=== PATIENT | female | born 1990 | race Caucasian/White ===

== ENCOUNTER → 2016-07-11 | Outpatient (CLI) | payer OTHER ==
[~2016-07-11] MED LIST: ACET50TA PO; IBUP80TA PO
== END ==
LOC: M SMT 13:34
PROVIDERS: ATTEND Advanced Practice Midwife
DX: Z34.01 Encounter for supervision of normal first pregnancy, first trimester (principal)

== ENCOUNTER → 2016-09-08 | Outpatient (CLI) | payer OTHER ==
--- NOTE | 2016-09-09 03:32 | REP ---
Clinical: Anatomical evaluation. Comparison: None . Findings: Examination demonstrates a single live intrauterine in cephalic presentation. motion is identified by technologist. Placenta is noted posterior and grade zero without evidence for placenta previa or abruption. Amniotic fluid volume is normal. Cervix measures 4.0 cm in length and appears closed. No evidence for nuchal cord. Gestational age by LMP 17 weeks 6 days with MIRIAM 02/10/2017 . Gestational age by current measurements 18 weeks 1 day with MIRIAM 02/08/2017 . FHR equals 147 beats per minute. BPD 4.2 cm 18 weeks 5 days HC 14.9 cm 18 week 0 days AC 13.0 cm 18 weeks 4 days FL 2.6 cm 18 weeks 5 day HL a 0.6 cm 18 weeks 3 days HC/AC ratio 1.14 Estimated weight 227 grams ( 57th percentile). Anatomical assessment demonstrates normal structures including cranium, cavum, cerebellum/posterior fossa, facial features, lungs, four-chamber heart/left ventricular outflow tract, diaphragm, stomach, cord insertion/three-vessel cord, kidneys/bladder, spine, and extremities. Small bilateral choroid plexus cysts measure up to 4 mm. Impression: 1. Single live intrauterine in cephalic presentation demonstrating appropriate interval growth. 2. Small choroid plexus cysts up to 4 mm. Anatomical assessment is otherwise complete and normal. Signed by Sunny Heard MD 09/09/2016 03:23 A
== END ==
LOC: M SMT 13:34
PROVIDERS: ATTEND Specialist
DX: Z34.82 Encounter for supervision of other normal pregnancy, second trimester (principal)

== ENCOUNTER → 2016-11-03 | Outpatient (CLI) | payer OTHER ==
[2016-11-03 14:00] LABS: BASO % 0.2 % (0.0-1.0); EOS % 0.7 % (0.0-3.0); LARGE UNSTAINED CELL % 0.7 % (0.0-4.0); LYMPH # 1.2 K/mm3 (1.5-6.5); LYMPH % 18.3 % (24.0-44.0); MEAN CORPUSCULAR HEMOGLOBIN 34.6 pg (27.0-33.0); MEAN CORPUSCULAR HGB CONC 33.6 g/dl (32.0-36.5); MEAN CORPUSCULAR VOLUME 102.8 fl (80.0-96.0); MONO # 0.4 K/mm3 (0.0-0.8); MONO % 6.5 % (0.0-5.0); NEUTROPHILS # 4.7 K/mm3 (1.8-7.7); NEUTROPHILS % 73.6 % (36.0-66.0); PLATELET COUNT, AUTOMATED 203 k/mm3 (150-450); RED CELL DISTRIBUTION WIDTH 12.6 % (11.5-14.5); WHITE BLOOD COUNT 6.4 K/mm3 (4.0-10.0)
== END ==
LOC: M SMT 08:30
PROVIDERS: ATTEND Advanced Practice Midwife
DX: Z34.83 Encounter for supervision of other normal pregnancy, third trimester (principal)

== ENCOUNTER → 2017-01-20 | Outpatient (REF) | payer OTHER | LOC: M LAB REF 17:03 | PROVIDERS: ATTEND Advanced Practice Midwife | DX: Z34.83 Encounter for supervision of other normal pregnancy, third trimester (principal) ==

== ENCOUNTER 2017-02-17 17:29 | Inpatient (IN) | payer OTHER ==
[~2017-02-17] VITALS: Ht 157.5 cm; Wt 85.0 kg
[2017-02-17 17:52] VITALS: BP 142/64
[2017-02-17] MEDS ORDERED: ZANTTAB PO (17:56)
[2017-02-17 18:09] VITALS: BP 112/79
[2017-02-17 18:25] LABS: MEAN CORPUSCULAR HEMOGLOBIN 31.7 pg (27.0-33.0); MEAN CORPUSCULAR HGB CONC 33.6 g/dl (32.0-36.5); MEAN CORPUSCULAR VOLUME 94.2 fl (80.0-96.0); PLATELET COUNT, AUTOMATED 146 10^3/uL (150-450); RED CELL DISTRIBUTION WIDTH 12.8 % (11.5-14.5); WHITE BLOOD COUNT 6.1 10^3/uL (4.0-10.0)
[2017-02-17 18:59] VITALS: BP 125/75
[2017-02-17] MEDS ORDERED: miSOPROStol 50 MCG 1/2 TAB (S0191) PO ONE (20:00)
[2017-02-17] MEDS ORDERED: BUTORPHANOL 2 MG/ML INJ (J0595) IV ONE (22:45)
[2017-02-17] MEDS ORDERED: PROMETHAZINE INJ 25 MG/ML VIAL (J2550) IV PRN (22:45)
--- NOTE | 2017-02-17 23:03 | HPE ---
DATE OF ADMISSION: 02/17/2017 REASON FOR ADMISSION: Induction of labor for post dates. HISTORY OF PRESENT ILLNESS: Ms. Lora is a 26-year-old 2, para 1 who presented after 41 weeks 0 days estimated gestational age by last menstrual period confirmed by first trimester ultrasound here for induction of labor for post dates. Her course has been unremarkable. She initiated care the first trimester and has been appropriate throughout. PAST MEDICAL HISTORY: None. PAST SURGICAL HISTORY: She has had a left breast biopsy. MEDICATIONS: Include vitamins. ALLERGIES: She has no known drug allergies. OBSTETRICAL HISTORY: She is 2, para 1. She has had one term vaginal delivery. She is proven to 9 pounds 7 ounces. PHYSICAL EXAMINATION: VITAL SIGNS: Stable. She is afebrile. She has a category 1 heart rate tracing. Had regular contractions tocometer. GENERAL APPEARANCE: Well appearing. No acute distress. LUNGS: Clear to auscultation bilaterally. CARDIOVASCULAR: Heart regular rate and rhythm. ABDOMEN: Gravid, nontender. Estimated weight 3700 grams. CERVICAL EXAM: She is 3 cm dilated, 50% effaced, - 3 station. LABS: Blood type is A negative. Antibody screen is negative. Rubella immune. RPR is nonreactive. Hepatitis surface antigen negative. HIV negative. Hepatitis C is nonreactive. Chlamydia and gonorrhea screen is negative. She had a normal one-hour Glucola. She is GBS negative. ASSESSMENT: 1. Ms. Lora is a 26-year-old 2, para 1 who is at 41 weeks 0 days here for induction of labor. 2. Reassuring status. PLAN: 1. Admit to labor and delivery. CBC, RPR, type and screen. 2. Will initiate her induction with 50 mcg of misoprostol.
[2017-02-18] MEDS ORDERED: OXYTOCIN DRIP 30 UNITS in APPROPRIATE DILUENT 1 EA IV SCH ×3 (01:01)
[2017-02-18] MEDS ORDERED: DOCUSATE SODIUM 100 MG CAP PO PRN (01:15)
[2017-02-18] MEDS ORDERED: RHOGAM 300 MCG (1500 IU) INJ (J2790) IM SCH (01:15)
[2017-02-18] MEDS ORDERED: METHYLERGONOVINE MALEATE 0.2 MG TAB PO PRN (01:15)
[2017-02-18] MEDS ORDERED: ACETAMINOPHEN 500 MG TAB PO PRN (01:15)
[2017-02-18] MEDS ORDERED: MEASLES,MUMPS,RUBELLA VACCINE INJ (MMR-II) (90707) SC SCH (01:15)
[2017-02-18] MEDS ORDERED: ANUSOL HC CREAM 30GM TOP PRN (01:15)
[2017-02-18] MEDS ORDERED: MOM 30ML SUSPENSION UDC PO PRN (01:15)
[2017-02-18] MEDS ORDERED: DIBUCAINE 1% OINTMENT 30GM TOP PRN (01:15)
[2017-02-18 03:08] VITALS: BP 122/69
[2017-02-18 05:43] VITALS: BP 101/54
[2017-02-18 08:28] VITALS: BP 116/60
[2017-02-18] MEDS: PRENATAL VITAMINS CHEWABLE TABLET PO SCH (09:00)
[2017-02-18 10:46] VITALS: BP 120/86
--- NOTE | 2017-02-18 14:56 | DN ---
DATE OF DELIVERY: 02/18/2017 TIME OF : 0028 hours. GENDER: Male. SCORE: 8 and 9. WEIGHT: 8 pounds 7 ounces or 3040 grams. ANESTHESIA: None. LACERATIONS: None. ESTIMATED BLOOD LOSS: 300 mL. COUNTS: 5 laparotomy sponges accounted for prior to and after delivery. DELIVERY NOTE: On 02/18/2017, at 0028 hours, Ms. Lora, a 26-year-old, 2, now para 2, had a spontaneous vaginal delivery of a liveborn male infant, score 8 and 9, weight was 3840 grams or 8 pounds 7. Head was delivered occiput anterior (OA) over an intact peritoneum, followed by delivery of right anterior shoulder, left posterior shoulder and corpus. Infant was handed to mom with a good cry. Cord was clamped times two. It was cut by the father of the baby under my direction. Cord blood was obtained. Placenta was drained and delivered grossly intact. A premixed bag of 500 mL of normal saline with 30 units of Pitocin was then bolused along with uterine massage until uterus was firm. On inspection, cervix , vagina and perineum was grossly intact and hemostatic. Mom and baby recovered in stable condition. [facility]
[2017-02-18 18:24] VITALS: BP 107/57
[2017-02-18] MEDS: IBUPROFEN 800 MG TAB PO PRN (19:49)
[2017-02-19 06:00] VITALS: BP 118/66
[2017-02-19] MEDS: PRENATAL VITAMINS CHEWABLE TABLET PO SCH (07:55)
[2017-02-19] MEDS: IBUPROFEN 800 MG TAB PO PRN (07:55)
[2017-02-19] MEDS ORDERED: COLA100C5 PO (12:24)
[2017-02-19] MEDS ORDERED: ACET50TA PO (12:24)
[2017-02-19] MEDS ORDERED: IBUP-1114 PO (12:24)
[2017-02-19] MEDS ORDERED: MILKSUS PO (12:24)
[2017-02-19] MEDS ORDERED: PREN29TA4 PO (12:24)
== END 2017-02-19 13:05 | disposition home or self-care (01) | DRG 560 ==
LOC: M LDI 17:29 → M OBS 02-18 03:05
PROVIDERS: ADMIT Obstetrics & Gynecology; ATTEND Obstetrics & Gynecology
PROC: 3E0DXGC Introduction of Other Therapeutic Substance into Mouth and Pharynx, External Approach (ICD-10-PCS; 2017-02-17)
PROC: 10E0XZZ Delivery of Products of Conception, External Approach (ICD-10-PCS; principal; 2017-02-18)
DX: O48.0 Post-term pregnancy (principal); Z37.0 Single live birth; Z3A.41 41 weeks gestation of pregnancy

== ENCOUNTER → 2018-05-14 | Outpatient (REF) | payer OTHER ==
[~2018-05-14] MED LIST changes: +COLA100C5 PO; +IBUP-1114 PO; +MAPA500T2 PO; +MILK120011 PO; +PREN29TA4 PO; +ZANTTAB PO
== END ==
LOC: M LAB REF 13:04
PROVIDERS: ATTEND Specialist
DX: Z12.4 Encounter for screening for malignant neoplasm of cervix (principal)

== ENCOUNTER → 2018-08-08 | Outpatient (REF) | payer OTHER ==
[~2018-08-08] MED LIST changes: -ACET50TA PO; +MAPA500T17 PO
== END ==
LOC: M LAB REF 18:03
PROVIDERS: ATTEND Advanced Practice Midwife
DX: R30.0 Dysuria (principal)

== ENCOUNTER → 2019-06-04 | Outpatient (REF) | payer OTHER ==
[~2019-06-04] MED LIST changes: +ZANT150T40 PO; -ZANTTAB PO
== END ==
LOC: M SFHCWAGY 17:30
PROVIDERS: ATTEND Specialist
DX: Z01.419 Encounter for gynecological examination (general) (routine) without abnormal findings (principal)

== ENCOUNTER → 2020-05-11 | Outpatient (CLI) | payer OTHER | LOC: M PLALAB 14:57 | PROVIDERS: ATTEND Obstetrics & Gynecology | DX: Z34.81 Encounter for supervision of other normal pregnancy, first trimester (principal) ==

== ENCOUNTER → 2020-07-13 | Outpatient (REF) | payer OTHER | LOC: M PLALAB 14:41 | PROVIDERS: ATTEND Obstetrics & Gynecology | DX: Z34.92 Encounter for supervision of normal pregnancy, unspecified, second trimester (principal); Z3A.22 22 weeks gestation of pregnancy ==

== ENCOUNTER → 2020-07-14 | Outpatient (CLI) | payer OTHER ==
--- NOTE | 2020-07-14 09:43 | REP ---
INDICATION: VAGINAL BLEEDING IN , 22 WEEKS GESTATION COMPARISON: None. TECHNIQUE: Transabdominal obstetrical ultrasound with color Doppler evaluation. FINDINGS: Examination demonstrates a single live intrauterine in cephalic presentation. motion is identified by technologist. Placenta is noted anterior and grade 1 without evidence for placenta previa or abruption. Amniotic fluid volume is normal. Cervix measures 3.7 cm in length and appears closed.. Gestational age by LMP 22 weeks 2 days with MIRIAM 11/15/2020. Gestational age by current measurements 21 weeks 3 days with MIRIAM 11/21/2020. FHR equals 147 beats per minute. Estimated weight 445 grams (19thpercentile). IMPRESSION: 1. Single live intrauterine in cephalic presentation demonstrating appropriate estimated weight. 2. Placenta identified anteriorly and without placenta previa. The patient was told on prior evaluation that there was evidence for placental abruption. The current examination demonstrates no definite abruption although the anterior-most portion of the placenta is incompletely visualized. If the patient remains symptomatic re-evaluation may be warranted. <Electronically signed by Sunny Heard > 07/14/20 0938
== END ==
LOC: M WHC 09:01
PROVIDERS: ATTEND Obstetrics & Gynecology
DX: O46.90 Antepartum hemorrhage, unspecified, unspecified trimester (principal); Z3A.22 22 weeks gestation of pregnancy

== ENCOUNTER → 2020-08-11 | Outpatient (REF) | payer OTHER ==
[2020-08-11 18:05] LABS: HEMATOCRIT 32.5 % (36.0-47.0); HEMOGLOBIN 10.6 g/dl (12.0-15.5); MEAN CORPUSCULAR HEMOGLOBIN 33.1 pg (27.0-33.0); MEAN CORPUSCULAR HGB CONC 32.6 g/dl (32.0-36.5); MEAN CORPUSCULAR VOLUME 101.6 fl (80.0-96.0); PLATELET COUNT, AUTOMATED 203 10^3/uL (150-450); WHITE BLOOD COUNT 8.3 10^3/uL (4.0-10.0)
== END ==
LOC: M PLALAB 13:49
PROVIDERS: ATTEND Obstetrics & Gynecology
DX: Z34.92 Encounter for supervision of normal pregnancy, unspecified, second trimester (principal); Z3A.00 Weeks of gestation of pregnancy not specified
CPT/HCPCS: 36415; 82950; 85027; 86850; 86900; 86901; J2790

== ENCOUNTER → 2020-10-21 | Outpatient (REF) | payer OTHER | LOC: M PLALAB 15:22 | PROVIDERS: ATTEND Obstetrics & Gynecology | DX: Z34.93 Encounter for supervision of normal pregnancy, unspecified, third trimester (principal); Z3A.36 36 weeks gestation of pregnancy ==

== ENCOUNTER → 2020-10-21 | Outpatient (CLI) | payer OTHER ==
--- NOTE | 2020-10-21 14:17 | REP ---
INDICATION: 36 WEEK GESTATION,MACROSOMIA,GROWTH. COMPARISON: July 24, 2020.. TECHNIQUE: Transabdominal obstetric sonography. FINDINGS: Scanning through the gravid uterus demonstrates a viable single intrauterine gestation in cephalic lie. motion is observed and heart rate is recorded at 139 beats per minute. A anterior placenta is seen, grade 2, without evidence of placenta previa. Closed cervical length could not be seen or measured due to head position.. No extrauterine abnormality is observed. Amniotic fluid is subjectively normal. CLARA is normal at 10.4 cm.. . Biometry chart: BPD 8.8 cm, 35 weeks 3 days Head circumference 31.2 cm, 35 weeks 0 days Abdominal circumference 28.8 cm, 32 weeks 5 days Femur length 6.8 cm, 35 weeks 0 days Humeral length 5.8 cm, 33 weeks 4 days HC AC ratio normal 1.09 Cephalic index normal 0.80 Estimated weight 2300 g, 5 lb 1 oz, 5th percentile for 36 weeks 3 days SD ratio in the umbilical cord artery by Doppler normal 2.24 IMPRESSION: Viable single intrauterine gestation at 364 weeks 2 days by today's composite sonographic criteria. MIRIAM by today's sonography November 30, 2020. No complication identified. Expected gestational age estimate based on 1st sonography 36 weeks 3 days MIRIAM by 1st sonography November 15, 2020. Fifth percentile weight. <Electronically signed by Angel Lora > 10/21/20 [id number]
== END ==
LOC: M WHC 12:03
PROVIDERS: ATTEND Advanced Practice Midwife
DX: O36.63X1 Maternal care for excessive fetal growth, third trimester, fetus 1 (principal); Z3A.34 34 weeks gestation of pregnancy

== ENCOUNTER → 2020-10-22 | Outpatient (REF) | payer OTHER | LOC: M SFHCWAGY 17:01 | PROVIDERS: ATTEND Obstetrics & Gynecology | DX: Z34.83 Encounter for supervision of other normal pregnancy, third trimester (principal); Z3A.36 36 weeks gestation of pregnancy ==

== ENCOUNTER → 2020-10-29 | Outpatient (CLI) | payer OTHER ==
--- NOTE | 2020-10-29 11:25 | REP ---
INDICATION: IUGR,BPP. COMPARISON: . Comparison study October 21, 2020.. TECHNIQUE: Transabdominal obstetric sonography. Limited study. FINDINGS: Scanning through the gravid uterus demonstrates a viable single intrauterine gestation in cephalic lie. motion is observed and heart rate is recorded at 139 beats per minute. A anterior placenta is seen, grade 1, without evidence of placenta previa. Closed cervical length is measured at 4.1 cm transabdominally. No extrauterine abnormality is observed. Amniotic fluid is subjectively normal CLRAA is normal at 9.2 cm.. Biophysical profile score is 8 out of a possible 8. SD ratio in the umbilical cord artery by Doppler is normal at 2.29.. IMPRESSION: Viable single intrauterine gestation at 37 weeks 4 days by previous composite sonographic criteria. MIRIAM by previous sonography 15 November 2020. No complication identified. Limited exam. <Electronically signed by Angel Lora > 10/29/20 1122
== END ==
LOC: M WHC 10:41
PROVIDERS: ATTEND Obstetrics & Gynecology
DX: Z34.82 Encounter for supervision of other normal pregnancy, second trimester (principal)

== ENCOUNTER → 2020-11-05 | Outpatient (CLI) | payer OTHER ==
--- NOTE | 2020-11-05 15:55 | REP ---
INDICATION: BPP/GROWTH. COMPARISON: Obstetrical ultrasound, 10/29/2020. TECHNIQUE: Limited transabdominal obstetrical ultrasound, for biophysical profile score. FINDINGS: Single living intrauterine of 38 weeks 4 days, mean gestational age. presentation is cephalic. The placenta is anterior grade 2. There is no evidence of placenta previa. Biophysical profile score: AFV, 2 (CLARA, 8.7 cm) Breathing,2 tone, 2 movement, 2 Umbilical artery Doppler: PSV/EDV, 47/22 cm/S S/D, 2.08 RI, 0.52 IMPRESSION: 1. Biophysical profile score 8/8. 2. Living IUP, 38 weeks 4 days. <Electronically signed by Diomedes Ward > 11/05/20 [id number]
== END ==
LOC: M WHC 13:28
PROVIDERS: ATTEND Advanced Practice Midwife
DX: O36.5930 Maternal care for other known or suspected poor fetal growth, third trimester, not applicable or unspecified (principal); Z3A.38 38 weeks gestation of pregnancy

== ENCOUNTER 2020-11-09 07:34 | Inpatient (IN) | payer OTHER ==
[~2020-11-09] VITALS: Ht 157.5 cm; Wt 97.2 kg
[2020-11-09] VITALS (26 sets, daily range): BP systolic 107–166; BP diastolic 58–89
[2020-11-09] MEDS ORDERED: OMEP10CASR PO (08:01)
[2020-11-09] MEDS ORDERED: HOME MED LIST COMPLETE! XX SCH (08:05)
[2020-11-09] MEDS ORDERED: OXYTOCIN DRIP 30 UNITS in IV 1 EA IV PRN (08:25)
[2020-11-09] MEDS ORDERED: TRANEXAMIC ACID INJection 1,000 MG in NS 100 ML IV PRN (08:25)
[2020-11-09] MEDS ORDERED: CARBOPROST TROMETHAMINE 250 MCG/ML AMP IM PRN (08:25)
[2020-11-09] MEDS ORDERED: LIDOCAINE 1% MDV 20ML VIAL INFIL PRN (08:25)
[2020-11-09] MEDS ORDERED: METHYLERGONOVINE MALEATE 0.2 MG/ML VIAL (J2210) IM PRN (08:25)
[2020-11-09] MEDS ORDERED: LACTATED RINGER'S 1000 ML IV STA (08:25)
[2020-11-09] MEDS ORDERED: OMEP40CA4 PO (08:35)
[2020-11-09] MEDS ORDERED: miSOPROStol 50MCG 1/2 TABLET PO SCH (09:00)
[2020-11-09 09:26] LABS: HEMATOCRIT 28.3 % (36.0-47.0); MEAN CORPUSCULAR HEMOGLOBIN 29.4 pg (27.0-33.0); MEAN CORPUSCULAR HGB CONC 31.8 g/dl (32.0-36.5); MEAN CORPUSCULAR VOLUME 92.5 fl (80.0-96.0); PLATELET COUNT, AUTOMATED 191 10^3/uL (150-450); RED BLOOD COUNT 3.06 10^6/uL (4.00-5.40); WHITE BLOOD COUNT 9.4 10^3/uL (4.0-10.0)
--- NOTE | 2020-11-09 09:39 | HPEPDOC ---
Obstetrical History & Physical General Date of Admission Nov 09, 2020 at 07:34 Primary Care Physician: LISA ZAVALA CNM History of Present Illness Lucinda is a 30-year-old female who is a who is 39.1 weeks gestation with an MIRIAM of 11/15/20 based off of her LMP. She initiated care in her first trimest er of . Her has been complicated by a history of migraines, hemorrhage, shoulder dystocia and this has been complicated by intrauterine growth restriction with growth of 5%. She presents for an induction of labor for IUGR. Reports occasional contractions and active movement. She denies leaking of fluid and vaginal bleeding. Chief Complaint: Induction of labor, Other (intrauterine growth restriction) Information Provided By: Patient Age: 30 : 3 Term: 2 Pre-term: 0 Abortions: 0 Livin Care Care: Good Care Dating Final EDC: Nov 15, 2020 Final EDC by: LMP EGA at Admission: 39.1 Antepartum Course Diagnos(e)s IUGR Hx of macrosomia and shoulder dystocia Height (inches): 62 Admission Weight (lbs.): 213 Past Medical History Past Obstetrical History #1: Past Obstetrical History: Primgravida Date of Delivery: Apr 01, 2013 Gestation: 41.3 Type of Delivery: Spontaneous Vaginal Del. Sex of Infant: Male (9 lbs 7 oz) Complications: Yes ( hemorrhage and shoulder dystocia) Past Obstetrical History #2: Past Obstetrical History: Multigravida Date of Delivery: Feb 18, 2017 Gestation: 41 Type of Delivery: Spontaneous Vaginal Del. Sex of Infant: Male (8 lbs 7 oz) Complications: No SEAM HAMMERER History: Abnormal Pap, Human papillomavirus(HPV) (with cryotherapy of cervix) Past Medical History Medical History GERD Surgical History: Other (hand surgery (cyst and carpal tunnel) and removal of cyst from breast) Family History Significant Family History: Hypertension, Other (cleft lip, neuroblastoma, bipolar, depression) Social History Marital Status: Single Family situation: Spouse/partner home Psychosocial History: No pertinent psych hx * Smoker: non-smoker Alcohol: Denies Drugs: denies Abuse Violence Screening Have you been hit/kicked/slapp: No Have you been sexually assault: No Imunizations Tdap status: current Allergies Coded Allergies: No Known Allergies (Unverified , 03/31/13) Medications Scheduled Omeprazole (Omeprazole) 40 Mg Capsule.dr, 40 MG PO DAILY Physical Examination Physical Examination GENERAL: Alert and oriented times three. ABDOMEN: Gravid and non-tender to touch. FETUS: Is vertex (VTX) by sterile vaginal examination (SVE), fetus is vertex (VTX) by Juan. LUNGS: Clear to auscultation (CTA). EXTREMITIES: Generalized edema. No clonus. Deep tendon reflexes (DTRs) + 2. Vital Signs/I&O Vital Signs Date Time Temp Pulse Resp B/P (MAP) Pulse Ox O2 Delivery O2 Flow Rate FiO2 11/09/20 08:30 100 18 149/84 (105) 11/09/20 07:59 97.9 Laboratory Data 24H LABS Laboratory Tests 2 11/09/20 07:57: Serology Scanned Report Hepatitis B Testing 11/09/20 09:10: Nucleated Red Blood Cells % (auto) 0.0 CBC/BMP Laboratory Tests 11/09/20 09:10 Urine Culture: Contaminated Pertinent Laboratoy Data Blood Type: A- RBC Antibody Screen: Negative HIV: Negative Hepatitis B: Negative Hepatitis C: Negative Rapid Plasma Reagin: Nonreactive Rubella: Immune Chlamydia/Gonorrhea: Negative Group B Streptococcus: Negative Glucose Tolerance Test: 72 Diag/Inter Therapy NIPT low risk normal female Anatomy Ultrasound Ultrasound Date: Oct 21, 2020 Placenta Location: Anterior Normal Anatomy: Yes Placenta Previa: No Estimated Weight (grams): 2300 Vaginal Examination Dilation: 1cm Effacement: 50% Station: -2 Cervical Consistency: Soft Cervical Position: Anterior Presentation: Cephalic presentation Assessment Heart Rate (FHR): 130 Variability: Moderate Accelerations: Positive Decelerations: None Tocometer Contractions: Yes Frequency: irregular Multi-drug resistant Organism: No history of MDRO Assessment/Plan Assessment IUP at 39.1 weeks gestation GBS negative Category I FHR tracing intrauterine growth restriction Plan Admit to L&D. Dr. Allison aware of patient being in the department. OOB ad khadijah. Diet: regular now then clears when IV Pitocin is started. Group B Streptococcus (GBS) negative. Labs and intravenous (IV) per unit protocol. Counseled on Cytotec and Pitocin for induction of labor. Anesthesia consult per patient's request. Lactated Ringers (LR): Bolus 800 mL prior to epidural, then at 125 mL/hr. Anticipate cervical ripening. C-S as appropriate. LISA ZAVALA CNM Nov 09, 2020 09:39
[2020-11-09 10:00] LABS: ALT/SGPT 13 U/L (12-78); BILIRUBIN,TOTAL 0.2 MG/DL (0.2-1.0); CREATININE FOR GFR 0.42 MG/DL (0.55-1.30); GLOMERULAR FILTRATION RATE > 60.0 (>60); LDH LACTATE DEHYDROGENASE 176 U/L (84-246)
[2020-11-09 11:02] LABS: CREATININE,RANDOM URINE 68.3 MG/DL
[2020-11-09] MEDS ORDERED: OXYTOCIN DRIP 30 UNITS in IV 1 EA IV SCH (14:45)
[2020-11-09] MEDS: LR 1,000 ML IV SCH ×2 (15:10→23:15)
--- NOTE | 2020-11-09 20:53 | IPNPDOC ---
Obstetrical Progress Note Date of Service Nov 09, 2020 Subjective Reports contractions are more intense. Objective Vital Signs Date Time Temp Pulse Resp B/P (MAP) Pulse Ox O2 Delivery O2 Flow Rate FiO2 11/09/20 19:15 98.2 16 11/09/20 18:59 73 118/58 (78) Assessment Heart Rate (FHR): 140 Variability: Moderate Accelerations: Positive Decelerations: None Heart Rate Tracing: Category I Tocometer Contractions: Yes Frequency: regular Sterile Vaginal Examination Dilation: 3 cm (3-4 cm) Effacement (%): other (75%) Station: -2 Cervical Consistency: Soft Cervical Position: Anterior Postion/Presentation: Cephalic presentation Assessment and Plan Age: 30 : 3 Term: 2 Pre-term: 0 Abortions: 0 Livin EGA at Admission: 39.1 Status: Reassuring Group B Streptococcus: Negative Anticipate: Vaginal Delivery Additional Comments IV Pitocin at 14 mu/min. AROM to a scant amount of clear fluid. IV pain medication ordered per patient's request. GHTN diagnosed with multiple elevated blood pressures throughout the day. Labile BPs. LISA ZAVALA CNM Nov 09, 2020 20:53
[2020-11-09] MEDS ORDERED: BUTORPHANOL 2 MG/ML INJ (J0595) IV ONE (21:00)
[2020-11-09] MEDS ORDERED: PROMETHAZINE INJ 25 MG/ML VIAL (J2550) IV ONE (21:00)
[2020-11-10] VITALS (12 sets, daily range): BP systolic 110–147; BP diastolic 55–79
[2020-11-10] MEDS ORDERED: ACETAMINOPHEN TAB 650MG DOSE (2X325MG) PO PRN (01:10)
[2020-11-10] MEDS ORDERED: MEASLES,MUMPS,RUBELLA VACCINE INJ (MMR-II) (90707) SC SCH (01:10)
[2020-11-10] MEDS ORDERED: IBUPROFEN 600MG TAB PO PRN (01:10)
[2020-11-10] MEDS ORDERED: ACETAMINOPHEN 500 MG TAB PO PRN (01:10)
[2020-11-10] MEDS ORDERED: METHYLERGONOVINE MALEATE 0.2 MG TAB PO PRN (01:10)
[2020-11-10] MEDS ORDERED: DOCUSATE SODIUM 100MG CAPSULE PO PRN (01:10)
[2020-11-10] MEDS ORDERED: DIBUCAINE 1% OINTMENT 30GM TOP PRN (01:10)
[2020-11-10] MEDS ORDERED: RHOGAM 300 MCG (1500 IU) INJ (J2790) IM SCH (01:10)
[2020-11-10] MEDS ORDERED: ANUSOL HC CREAM 30GM TOP PRN (01:10)
--- NOTE | 2020-11-10 01:27 | DNPDOC ---
[facility] Delivery Note Delivery Note DATE OF DELIVERY: 11/10/20 at 0051 PREDELIVERY DIAGNOSIS: 39-1/7 weeks' gestation and induction of labor. POST DELIVERY DIAGNOSIS: Delivered. PROCEDURE: Spontaneous vaginal delivery. FREIGHT CLERK: Lisa Farrell CNM, JENNIFFER ANESTHESIA: none. ESTIMATED BLOOD LOSS: 250 mL. FINDINGS: 6 pounds 1 ounce; 2760 grams, female , Score 9/9, nuchal cord times x1 tight, induced for IUGR. DELIVERY SUMMARY: Lucinda is a 30-year-old female who is now a who presented for an IOL due to IUGR with growth at 5%. She also has a history of macrosomia with shoulder dystocia. She received 1 dose of Cytotec and IV Pitocin for IOL. Lucinda requested IV pain medication to manage labor discomfort. She progressed to fully dilated at 0044 and pushed to a living female in the YENNI position with restitution to LOT. A tight nuchal cord was noted and baby was delivered via Somersault. The baby was placed skin to skin, active and crying with stimulation. The cord was clamped x2 after 2+ minutes and cut by the FOB. A 3-vessel cord was noted. The placenta delivered intact at 0057. Uterine hemostasis was achieved via rapid infusion of IV Pitocin and fundal massage. The vagina, cervix, and perineum was inspected and found to have periurethral abrasions. Mom plans to pump and formula feed. They are naming her Celia. Both mom and baby are in stable condition. All counts of instruments and sponges are correct. LISA FARRELL CNM Nov 10, 2020 01:27
[2020-11-10] MEDS: PRENATAL VITAMINS CHEWABLE TABLET PO SCH (09:08)
[2020-11-10] MEDS: OMEPRAZOLE 20 MG CAP PO SCH (09:08)
[2020-11-10] MEDS: IBUPROFEN 800 MG TAB PO PRN (09:17)
[2020-11-11 06:00] VITALS: BP 122/67
[2020-11-11] MEDS: PRENATAL VITAMINS CHEWABLE TABLET PO SCH (08:35)
[2020-11-11] MEDS: IBUPROFEN 800 MG TAB PO PRN (08:35)
[2020-11-11] MEDS: OMEPRAZOLE 20 MG CAP PO SCH (08:35)
== END 2020-11-11 13:07 | disposition home or self-care (01) | DRG 560 ==
LOC: M LDI 07:34 → M OBS 11-10 03:13
PROVIDERS: ADMIT Advanced Practice Midwife; ATTEND Advanced Practice Midwife
PROC: 3E033VJ Introduction of Other Hormone into Peripheral Vein, Percutaneous Approach (ICD-10-PCS; 2020-11-09)
PROC: 3E0DXGC Introduction of Other Therapeutic Substance into Mouth and Pharynx, External Approach (ICD-10-PCS; 2020-11-09)
PROC: 10E0XZZ Delivery of Products of Conception, External Approach (ICD-10-PCS; principal; 2020-11-10)
DX: O69.1XX0 Labor and delivery complicated by cord around neck, with compression, not applicable or unspecified (principal); O36.5930 Maternal care for other known or suspected poor fetal growth, third trimester, not applicable or unspecified; Z37.0 Single live birth; Z3A.39 39 weeks gestation of pregnancy

== ENCOUNTER → 2021-01-11 | Outpatient (CLI) | payer OTHER ==
[~2021-01-11] MED LIST changes: +OMEP10CASR PO; +OMEP40CA4 PO
== END ==
LOC: M LABSMTC 11:52
PROVIDERS: ATTEND Anesthesiology
DX: Z01.812 Encounter for preprocedural laboratory examination (principal); Z20.822 Contact with and (suspected) exposure to COVID-19

== ENCOUNTER 2021-01-15 06:15 | Day surgery (SDC) | payer OTHER ==
[~2021-01-15] VITALS: Ht 154.9 cm; Wt 93.9 kg
[~2021-01-15 06:15] MED LIST changes: +LIDOCAINE 1% MDV 20ML VIAL SQ PRN
--- OUTSIDE RECORDS SUMMARY | 2021-01-15 06:19 | CCD ---
Author Author [facility] Organization [facility] Address Unknown Phone Unavailable Care Team Providers Care Red Mud Thickener Operator Name Role Phone Anthony Weir Unavailable PROBLEMS Type Condition ICD9-CM Code [id number] Code Onset Dates Condition S tatus W/U Status Risk SNOMED Code Notes Problem Supervision of other normal Z34.80 Ac tive confirm 558466083 Problem Obesity complicating in third trimester O99.213 Active confirmed ALLERGIES No Known Allergies ENCOUNTERS from 1989 to 2021-01-10 Encounter Location Date Provider Diagnosis [facility] [address] [place] [address] [place] [address] Jan, Anthony Weir Sterilization consul t Z30.09 IMMUNIZATIONS Vaccine Route Administration Date Status TDAP 0.5mL Boostrix IM Intramuscular September 09, 2020 Administere d RHo D Immune Globulin 300mcg/1.5mL RhoGAM IM Intramuscular August 022020 Administered SOCIAL HISTORY Sex Assigned At : Social History Observation Description Sex Assigned At Unknown Language: Question Answer Notes Languages spoken: Greek Domestic Violence: Question Answer Notes Status: Single No history of abuse Alcohol Screening: Question Answer Notes Did you have a drink containing alcohol in the past year? No Points 0 Interpretation Negative REASON FOR REFERRAL No Information VITAL SIGNS Weight 205 lbs Jan, Height 62 in Jan, BMI 37.49 kg/m2 Jan, Blood pressure systolic 124 mm Hg Jan, Blood pressure diastolic 74 mm Hg Jan, MEDICATIONS No Known Medications PROCEDURES No Information RESULTS No Results REASON FOR VISIT PRE OP SURG 01/15/21 MEDICAL (GENERAL) HISTORY Type Description Date Medical History Abnormal pap Medical History Esophageal reflux Surgical History Hand surgery- cyst and carpal tunnel Surgical History Breast - cyst removed Surgical History Cryo surgery to cervix Hospitalization History childbirth Goals Section No Information Health Concerns No Information MEDICAL EQUIPMENT No Information MENTAL STATUS No Information FUNCTIONAL STATUS No Information ASSESSMENTS Encounter Date Diagnosis Assessment Notes Treatment Notes Treatm ent Clinical Notes Jan, Sterilization consult (ICD-10 - Z30.09) PLAN OF TREATMENT Next Appt Details Provider Name:Anthony Weir, 2021-01-15 08:45:00 AM, [address] [place] [address], , [place], [address], Provider Name:Anthony Weir, 2021-01-29 11:45:00 AM, [address] [place] [address] , [place], [address], Provider Name:Osiris Farrell, 2021-03-17 09:20:00 AM, [address] [place] [address], , [place], [address], Insurance Providers Payer Name Payer Address Payer Phone Insured Name Patient Relati onship to Insured Coverage Start Date Coverage End Date [facility] [employer] [address] [facility] [phone] ANGELICA CARR self
--- OUTSIDE RECORDS SUMMARY | 2021-01-15 06:19 | CCD ---
Author Author [facility] Organization [facility] Address Unknown Phone Unavailable Care Team Providers Care Residential Direct Support Professional Name Role Phone Anthony Weir Unavailable PROBLEMS Type Condition ICD9-CM Code [id number] Code Onset Dates Condition S tatus W/U Status Risk SNOMED Code Notes Problem Supervision of other normal Z34.80 Ac tive confirm [id number] Problem Obesity complicating in third trimester O99.213 Active confirmed ALLERGIES No Known Allergies ENCOUNTERS from 1989 to 2020-12-25 Encounter Location Date Provider Diagnosis [facility] [address] [place] [address] [place] [address] Dec, Anthony Weir IMMUNIZATIONS Vaccine Route Administration Date Status TDAP 0.5mL Boostrix IM Intramuscular September 09, 2020 Administere d RHo D Immune Globulin 300mcg/1.5mL RhoGAM IM Intramuscular August 022020 Administered SOCIAL HISTORY Sex Assigned At : Social History Observation Description Sex Assigned At Unknown Language: Question Answer Notes Languages spoken: Djiboutian Domestic Violence: Question Answer Notes Status: Single No history of abuse Alcohol Screening: Question Answer Notes Did you have a drink containing alcohol in the past year? No Points 0 Interpretation Negative REASON FOR REFERRAL No Information VITAL SIGNS No information MEDICATIONS Medication SIG (Take, Route, Frequency, Duration) Notes Start Da te End Date Status Ferrous Sulfate 324 (65 Fe) MG 1 tablet Orally twice day for 30 day(s) August, Not-Taking Clobetasol Prop Emollient Base 0.05 % 1 application-th in layer to hips Externally Twice a day for 7 day(s) Jun, Not-Taking Fioricet 50-300-40 MG 1 capsule as needed Orally every 4 hrs 08 May, 2020 Not-Taking Septra DS 800-160 MG 1 tablet Orally Twice a day for 10 day(s) Jan, Not-Taking Omeprazole 40 MG 1 capsule 30 minutes before morning meal Orally Once a day for 30 day(s) August, Not-Taking Gummies/DHA & FA 0.4-32.5 MG as directed Orally Not-Taking Ondansetron 4 MG 1 tablet on the tongue and a llow to dissolve Orally every 8hrs as needed for 30 day(s) Not-Taki ng Sherine 0.35 MG 1 tablet Orally Once a day for 90 days 2019 Not-Taking PROCEDURES No Information RESULTS No Results REASON FOR VISIT AUTH MEDICAL (GENERAL) HISTORY Type Description Date Medical History Abnormal pap Medical History Esophageal reflux Surgical History Hand surgery- cyst and carpal tunnel Surgical History Breast - cyst removed Surgical History Cryo surgery to cervix Hospitalization History childbirth Goals Section No Information Health Concerns No Information MEDICAL EQUIPMENT No Information MENTAL STATUS No Information FUNCTIONAL STATUS No Information ASSESSMENTS No Information PLAN OF TREATMENT Next Appt Details Provider Name:Anthony Weir, 2021-01-01 12:45:00 AM, [address] [place] [address], [place], [phone], Provider Name:Anthony Weir, 2021-01-15 08:45:00 AM, [address] [place] [address], [phone], Provider Name:Anthony Weir 2021-01-29 11:45:00 AM, [address] [place] [address], [phone], Provider Name:Osiris Farrell 2021-03-17 09:20:00 AM, [address] [place] [address], [phone], Insurance Providers Payer Name Payer Address Payer Phone Insured Name Patient Relati onship to Insured Coverage Start Date Coverage End Date [facility] [employer] [facility] [address] [facility] [phone] ANGELICA CARR self
--- OUTSIDE RECORDS SUMMARY | 2021-01-15 06:20 | CCD ---
Author Author [facility] Organization [facility] Address Unknown Phone Unavailable Care Team Providers Care Neon Pumper Name Role Phone Serenity Nunez Unavailable PROBLEMS Type Condition ICD9-CM Code [id number] Code Onset Dates Condition S tatus W/U Status Risk SNOMED Code Notes Problem Supervision of other normal Z34.80 Ac tive confirm [id number] Problem Obesity complicating in third trimester O99.213 Active confirmed ALLERGIES No Known Allergies ENCOUNTERS from 1989 to 2020-10-23 Encounter Location Date Provider Diagnosis [facility] [address] [place] [address] [place] [address] Oct, Serenity Nunez Intrauterine growth restriction (IUGR) affecting care of mother, third trimester, single gestation O36.5930 and 36 weeks gestation of Z3A.36 IMMUNIZATIONS Vaccine Route Administration Date Status TDAP 0.5mL Boostrix IM Intramuscular September 09, 2020 Administere d RHo D Immune Globulin 300mcg/1.5mL RhoGAM IM Intramuscular August 022020 Administered SOCIAL HISTORY Sex Assigned At : Social History Observation Description Sex Assigned At Unknown Language: Question Answer Notes Languages spoken: Argentine Domestic Violence: Question Answer Notes Status: Single No history of abuse Alcohol Screening: Question Answer Notes Did you have a drink containing alcohol in the past year? No Points 0 Interpretation Negative REASON FOR REFERRAL No Information VITAL SIGNS Weight 2166.6 lbs Oct, Height 62 in Oct, BMI 37 kg/m2 Oct, Blood pressure systolic 110 mm Hg Oct, Blood pressure diastolic 68 mm Hg Oct, MEDICATIONS Medication SIG (Take, Route, Frequency, Duration) Notes Start Da te End Date Status Clobetasol Prop Emollient Base 0.05 % 1 application- in layer to hips Externally Twice a day for 7 day(s) Jun, Not-Taking Omeprazole 40 MG 1 capsule 30 minutes before morning meal Orally Once a day for 30 day(s) August, Active Ferrous Sulfate 324 (65 Fe) MG 1 tablet Orally twice day for 30 day(s) August, Active Septra DS 800-160 MG 1 tablet Orally Twice a day for 10 day(s) Jan, Not-Taking Sherine 0.35 MG 1 tablet Orally Once a day for 90 days 2019 Not-Taking Fioricet 50-300-40 MG 1 capsule as needed Orally every 4 hrs May, Not-Taking Gummies/DHA & FA 0.4-32.5 MG as directed Orally Active Ondansetron 4 MG 1 tablet on the tongue and a llow to dissolve Orally every 8hrs as needed for 30 day(s) Not-Taki ng PROCEDURES No Information RESULTS No Results REASON FOR VISIT 2WK PN MEDICAL (GENERAL) HISTORY Type Description Date Medical [...] Notes Treatment Notes Treatm ent Clinical Notes Oct, Intrauterine growth restrict ion (IUGR) affecting care of mother, third trimester, single gestation (ICD-10 - O36.5930) Oct, 36 weeks gestation of (ICD-10 - Z3A.36 ) PLAN OF TREATMENT Treatment Notes Test Name Order Date GROUP B STREP CULTURE 2020-10-21 [facility] BPP W/O NON STRESS TEST 2020-10-21 Next Appt Details 1 Week Reason:PN Provider Name:Sheila Rivera, 2020-10-29 01:40:00 PM, [address] [facility], , [place], [address], Follow Up:1 WeekPN Insurance Providers Payer Name Payer Address Payer Phone Insured Name Patient Relati onship to Insured Coverage Start Date Coverage End Date [facility] COMMUNITY PLAN [facility] [address] [facility] [phone] ANGELICA CARR self
--- OUTSIDE RECORDS SUMMARY | 2021-01-15 06:20 | CCD ---
Author Author [facility] Organization [facility] Address Unknown Phone Unavailable Care Team Providers Care Sales Department Clerk Name Role Phone Debra Allison Unavailable PROBLEMS Type Condition ICD9-CM Code [id number] Code Onset Dates Condition S tatus W/U Status Risk SNOMED Code Notes Problem Supervision of other normal Z34.80 Ac tive confirm [id number] Problem Obesity complicating in third trimester O99.213 Active confirmed ALLERGIES No Known Allergies ENCOUNTERS from 1989 to 2020-11-23 Encounter Location Date Provider Diagnosis [facility] [facility] [phone] [place] [address] Nov, Debra Allison IMMUNIZATIONS Vaccine Route Administration Date Status TDAP 0.5mL Boostrix IM Intramuscular September 09, 2020 Administere d RHo D Immune Globulin 300mcg/1.5mL RhoGAM IM Intramuscular August 022020 Administered SOCIAL HISTORY Sex Assigned At : Social History Observation Description Sex Assigned At Unknown Language: Question Answer Notes Languages spoken: [place]ym[place] Domestic Violence: Question Answer Notes Status: Single No history of abuse Alcohol Screening: Question Answer Notes Did you have a drink containing alcohol in the past year? No Points 0 Interpretation Negative REASON FOR REFERRAL No Information VITAL SIGNS No information MEDICATIONS Medication SIG (Take, Route, Frequency, Duration) Notes Start Da te End Date Status Septra DS 800-160 MG 1 tablet Orally Twice a day for 10 day(s) Jan, Not-Taking Clobetasol Prop Emollient Base 0.05 % 1 application-th in layer to hips Externally Twice a day for 7 day(s) Jun, Not-Taking Fioricet 50-300-40 MG 1 capsule as needed Orally every 4 hrs May, Not-Taking Ondansetron 4 MG 1 tablet on the tongue and a llow to dissolve Orally every 8hrs as needed for 30 day(s) Not-Taki ng Gummies/DHA & FA 0.4-32.5 MG as directed Orally Active Sherine 0.35 MG 1 tablet Orally Once a day for 90 days 2019 Not-Taking Ferrous Sulfate 324 (65 Fe) MG 1 tablet Orally twice day for 30 day(s) August, Active Omeprazole 40 MG 1 capsule 30 minutes before morning meal Orally Once a day for 30 day(s) August, Active PROCEDURES No Information RESULTS No Results REASON FOR VISIT BTL MEDICAL (GENERAL) HISTORY Type Description Date Medical [...] PLAN OF TREATMENT Next Appt Details Provider Name:Osiris Farrell, 2020-12-23 01:40:00 PM, [address] [facility], , [place], [address], Insurance Providers Payer Name Payer Address Payer Phone Insured Name Patient Relati onship to Insured Coverage Start Date Coverage End Date [facility] COMM[facility] PLAN [facility] [address] [facility] [phone] ANGELICA CRAR self
--- OUTSIDE RECORDS SUMMARY | 2021-01-15 06:20 | CCD ---
Author Author [facility] Organization [facility] Address Unknown Phone Unavailable Care Team Providers Care Desk Manager Name Role Phone Anthony Weir Unavailable PROBLEMS Type Condition ICD9-CM Code [id number] Code Onset Dates Condition S tatus W/U Status Risk SNOMED Code Notes Problem Supervision of other normal Z34.80 Ac tive confirm [id number] Problem Obesity complicating in third trimester O99.213 Active confirmed ALLERGIES No Known Allergies ENCOUNTERS from 1989 to 2020-12-15 Encounter Location Date Provider Diagnosis [facility] [address] [place] [address] [place] [address] Dec, Anthony Weir IMMUNIZATIONS Vaccine Route Administration Date Status TDAP 0.5mL Boostrix IM Intramuscular September 09, 2020 Administere d RHo D Immune Globulin 300mcg/1.5mL RhoGAM IM Intramuscular August 022020 Administered SOCIAL HISTORY Sex Assigned At : Social History Observation Description Sex Assigned At Unknown Language: Question Answer Notes Languages spoken: Croatian Domestic Violence: Question Answer Notes Status: Single [...] Information RESULTS No Results REASON FOR VISIT 01/15/21 SURG AUTH MEDICAL (GENERAL) HISTORY Type Description Date [...] Details Provider Name:Osiris Farrell, 2020-12-23 01:40:00 PM, [address] [place] [address], [address] [place] [address], Provider Name:Anthony Weir, 2021-01-01 12:45:00 AM, [address] [place] [address], [phone], Provider Name:Anthony Weir 2021-01-15 08:45:00 AM, [address] [place] [address], [phone], Provider Name:Anthony Weir 2021-01-29 11:45:00 AM, [address] [place] [address], [phone], Insurance Providers Payer Name Payer Address Payer Phone Insured Name Patient Relati onship to Insured Coverage Start Date Coverage End Date [facility] COMMUN[facility] PLAN [facility] [address] [facility] [phone] ANGELICA CARR self
--- OUTSIDE RECORDS SUMMARY | 2021-01-15 06:20 | CCD ---
Author Author [facility] Organization [facility] Address Unknown Phone Unavailable Care Team Providers Care Equal Opportunity Specialist Name Role Phone LUCAS, M OSIRIS CNM Unavailable Unavailable LUCAS, M OSIRIS CNM Unavailable Unavailable LUCAS, M OSIRIS CNM Unavailable Unavailable LUCAS, M OSIRIS CNM Unavailable Unavailable LUCAS, M OSIRIS CNM Unavailable Unavailable LUCAS, M OSIRIS CNM Unavailable Unavailable LUCAS, M OSIRIS CNM Unavailable Unavailable LUCAS, M OSIRIS CNM Unavailable Unavailable LUCAS, M OSIRIS CNM Unavailable Unavailable LUCAS, M OSIRIS CNM Unavailable Unavailable LUCAS, M OSIRIS CNM Unavailable Unavailable LUCAS, M OSIRIS CNM Unavailable Unavailable LUCAS, M OSIRIS CNM Unavailable Unavailable LUCAS, M OSIRIS CNM Unavailable Unavailable LUCAS, M OSIRIS CNM Unavailable Unavailable LUCAS, M OSIRIS CNM Unavailable Unavailable LUCAS, M OSIRIS CNM Unavailable Unavailable LUCAS, M OSIRIS CNM Unavailable Unavailable LUCAS, M OSIRIS CNM Unavailable Unavailable LUCAS, M OSIRIS CNM Unavailable Unavailable Sreedhar Grimaldo Unavailable Unavailable Sreedhar Grimaldo PA Unavailable Unavailable Sreedhar Grimaldo PA Unavailable Unavailable DillanSreedhar foley PA Unavailable Unavailable BassfieldSreedhar foley PA Unavailable Unavailable Sreedhar Grimaldo Unavailable Unavailable Sreedhar Grimaldo Unavailable Unavailable Dillan, F At PA Unavailable Unavailable Dillan, F Ta PA Unavailable Unavailable Dillan, F Ta PA Unavailable Unavailable Hadian, Juliano Unavailable Unavailable Hadian, Juliano Unavailable Unavailable Hadian, Juliano Unavailable Unavailable Hadian, Juliano Unavailable Unavailable Hadian, Juliano Unavailable Unavailable Hadian, Juliano Unavailable Unavailable Hadian, Juliano Unavailable Unavailable Hadian, Juliano Unavailable Unavailable Hadian, Juliano Unavailable Unavailable Hadian, Juliano Unavailable Unavailable Hadian, Juliano Unavailable Unavailable Hadian, Juliano Unavailable Unavailable Hadian, Juliano Unavailable Unavailable Hadian, Juliano Unavailable Unavailable Hadian, Juliano Unavailable Unavailable Hadian, Juliano Unavailable Unavailable Hadian, Juliano Unavailable Unavailable Hadian, Juliano Unavailable Unavailable Hadian, Juliano Unavailable Unavailable Hadian, Juliano Unavailable Unavailable Hadian, Juliano Unavailable Unavailable Hadian, Juliano Unavailable Unavailable Hadian, Juliano Unavailable Unavailable Hadian, Juliano Unavailable Unavailable Hadian, Juliano Unavailable Unavailable Hadian, Juliano Unavailable Unavailable Hadian, Juliano Unavailable Unavailable Hadian, Juliano Unavailable Unavailable Hadian, Juliano Unavailable Unavailable Hadian, Juliano Unavailable Unavailable Hadian, Juliano Unavailable Unavailable Hadian, Juliano Unavailable Unavailable Hadian, Juliano Unavailable Unavailable Hadian, Juliano Unavailable Unavailable Hadian, Juliano Unavailable Unavailable Hadian, Juliano Unavailable Unavailable Hadian, Juliano Unavailable Unavailable Hadian, Juliano Unavailable Unavailable Hadian, Juliano Unavailable Unavailable Hadian, Juliano Unavailable Unavailable Hadian, Juliano Unavailable Unavailable Hadian, Juliano Unavailable Unavailable ZEGIL, D SOBIA ADMINISTRATIVE OPERATIONS COORDINATOR Unavailable Unavailable ZEGIL, D SOBIA ADMINISTRATIVE OPERATIONS COORDINATOR Unavailable Unavailable ZEGIL, D SOBIA ADMINISTRATIVE OPERATIONS COORDINATOR Unavailable Unavailable Ravin, L Elizabeth PA Unavailable Unavailable Ravin, L Elizabeth PA Unavailable Unavailable Ravin, L Elizabeth PA Unavailable Unavailable Ravin, L Elizabeth PA Unavailable Unavailable Ravin, L Elizabeth PA Unavailable Unavailable Ravin, L Elizabeth PA Unavailable Unavailable Ravin, L Elizabeth PA Unavailable Unavailable Ravin, L Elizabeth PA Unavailable Unavailable Ravin, L Elizabeth PA Unavailable Unavailable Ravin, L Elizabeth PA Unavailable Unavailable Ravin, L Elizabeth PA Unavailable Unavailable Ravin, L Elizabeth PA Unavailable Unavailable Ravin, L Elizabeth PA Unavailable Unavailable Ravin, L Elizabeth PA Unavailable Unavailable Ravin, L Elizabeth PA Unavailable Unavailable Ravin, L Elizabeth PA Unavailable Unavailable Ravin, L Elizabeth PA Unavailable Unavailable Ravin, L Elizabeth PA Unavailable Unavailable Ravin, L Elizabeth PA Unavailable Unavailable Ravin, L Elizabeth PA Unavailable Unavailable Ravin, L Elizabeth PA Unavailable Unavailable Ravin, L Elizabeth PA Unavailable Unavailable Ravin, L Elizabeth PA Unavailable Unavailable Ravin, L Elizabeth PA Unavailable Unavailable Ravin, L Elizabeth PA Unavailable Unavailable Ravin, L Elizabeth PA Unavailable Unavailable Ravin, L Elizabeth PA Unavailable Unavailable Ravin, L Elizabeth PA Unavailable Unavailable Ravin, L Elizabeth PA Unavailable Unavailable Ravin, L Elizabeth PA Unavailable Unavailable Ravin, L Elizabeth PA Unavailable Unavailable Ravin, L Elizabeth PA Unavailable Unavailable Ravin, L Elizabeth PA Unavailable Unavailable Ravin, L Elizabeth PA Unavailable Unavailable Ravin, L Elizabeth PA Unavailable Unavailable Ravin, L Elizabeth PA Unavailable Unavailable Ravin, L Elizabeth PA Unavailable Unavailable Ravin, L Elizabeth PA Unavailable Unavailable Ravin, L Elizabeth PA Unavailable Unavailable Ravin, L Elizabeth PA Unavailable Unavailable Ravin, L Elizabeth PA Unavailable Unavailable RYANNE, A KELTON PA Unavailable Unavailable RYANNE, A KELTON PA Unavailable Unavailable RYANNE, A KELTON PA Unavailable Unavailable RYANNE, A KELTON PA Unavailable Unavailable RYANNE, A KELTON PA Unavailable Unavailable RYANNE, A KELTON PA Unavailable Unavailable RYANNE, A KELTON PA Unavailable Unavailable RYANNE, A KELTON PA Unavailable Unavailable RYANNE, A KELTON PA Unavailable Unavailable RYANNE, A KELTON PA Unavailable Unavailable RYANNE, A KELTON PA Unavailable Unavailable RYANNE, A KELTON PA Unavailable Unavailable RYANNE, A KELTON PA Unavailable Unavailable Cougler, S Sandro RETAIL AREA MANAGER Unavailable Unavailable Cougler, S Sandro RETAIL AREA MANAGER Unavailable Unavailable Cougler, S Sandro RETAIL AREA MANAGER Unavailable Unavailable Cougler, S Sandro RETAIL AREA MANAGER Unavailable Unavailable Cougler, S Sandro RETAIL AREA MANAGER Unavailable Unavailable Cougler, S Sandro RETAIL AREA MANAGER Unavailable Unavailable Cougler, S Sandro RETAIL AREA MANAGER Unavailable Unavailable Cougler, S Sandro RETAIL AREA MANAGER Unavailable Unavailable Cougler, S Sandro RETAIL AREA MANAGER Unavailable Unavailable Cougler, S Sandro RETAIL AREA MANAGER Unavailable Unavailable Cougler, S Sandro RETAIL AREA MANAGER Unavailable Unavailable Cougler, S Sandro RETAIL AREA MANAGER Unavailable Unavailable Cougler, S Sandro RETAIL AREA MANAGER Unavailable Unavailable Cougler, S Sandro RETAIL AREA MANAGER Unavailable Unavailable Cougler, S Sanrdo RETAIL AREA MANAGER Unavailable Unavailable Cougler, S Sandro RETAIL AREA MANAGER Unavailable Unavailable Cougler, S Sandro RETAIL AREA MANAGER Unavailable Unavailable Cougler, S Sandro RETAIL AREA MANAGER Unavailable Unavailable Cougler, S Sandro RETAIL AREA MANAGER Unavailable Unavailable Cougler, S Sandro RETAIL AREA MANAGER Unavailable Unavailable Cougler, S Sandro RETAIL AREA MANAGER Unavailable Unavailable Cougler, S Sandro RETAIL AREA MANAGER Unavailable Unavailable Cougler, S Sandro RETAIL AREA MANAGER Unavailable Unavailable Cougler, S Sandro RETAIL AREA MANAGER Unavailable Unavailable Cougler, S Sandro RETAIL AREA MANAGER Unavailable Unavailable Cougler, S Sandro RETAIL AREA MANAGER Unavailable Unavailable Cougler, S Sandro RETAIL AREA MANAGER Unavailable Unavailable Cougler, S Sandro RETAIL AREA MANAGER Unavailable Unavailable Cougler, S Sandro RETAIL AREA MANAGER Unavailable Unavailable Cougler, S Sandro RETAIL AREA MANAGER Unavailable Unavailable Cougler, S Sandro RETAIL AREA MANAGER Unavailable Unavailable Cougler, S Sandro RETAIL AREA MANAGER Unavailable Unavailable Cougler, S Sandro RETAIL AREA MANAGER Unavailable Unavailable Cougler, S Sandro RETAIL AREA MANAGER Unavailable Unavailable Cougler, S Sandro RETAIL AREA MANAGER Unavailable Unavailable Cougler, S Sandro RETAIL AREA MANAGER Unavailable Unavailable Cougler, S Sandro RETAIL AREA MANAGER Unavailable Unavailable Cougler, S Sandro RETAIL AREA MANAGER Unavailable Unavailable Cougler, S Sandro RETAIL AREA MANAGER Unavailable Unavailable Cougler, S Sandro RETAIL AREA MANAGER Unavailable Unavailable Cougler, S Sandro RETAIL AREA MANAGER Unavailable Unavailable Cougler, S Sandro RETAIL AREA MANAGER Unavailable Unavailable Cougler, S Sandro RETAIL AREA MANAGER Unavailable Unavailable Cougler, S Sandro RETAIL AREA MANAGER Unavailable Unavailable UNKNOWN Unavailable Unavailable Allison, K Debra MD Unavailable Unavailable Allison, K Debra MD Unavailable Unavailable Allison, K Debra MD Unavailable Unavailable Allison, K Debra MD Unavailable Unavailable Allison, K Debra MD Unavailable Unavailable Allison, K Debra MD Unavailable Unavailable Allison, K Debra MD Unavailable Unavailable Allison, K Debra MD Unavailable Unavailable Allison, K Debra MD Unavailable Unavailable Allison, K Debra MD Unavailable Unavailable Allison, K Debra MD Unavailable Unavailable Allison, K Debra MD Unavailable Unavailable Allison, K Debra MD Unavailable Unavailable Allison, K Debra MD Unavailable Unavailable Allison, K Debra MD Unavailable Unavailable Allison, K Debra MD Unavailable Unavailable Allison, K Debra MD Unavailable Unavailable Allison, K Debra MD Unavailable Unavailable Allison, K Debra MD Unavailable Unavailable Allison, K Debra MD Unavailable Unavailable Allison, K Debra MD Unavailable Unavailable Allison, K Debra MD Unavailable Unavailable Allison, K Debra MD Unavailable Unavailable Allison, K Debra MD Unavailable Unavailable Allison, K Debra MD Unavailable Unavailable Allison, K Debra MD Unavailable Unavailable Allison, K Debra MD Unavailable Unavailable Allison, K Debra MD Unavailable Unavailable Allison, K Debra MD Unavailable Unavailable Allison, K Debra MD Unavailable Unavailable Allison, K Debra MD Unavailable Unavailable Allison, K Debra MD Unavailable Unavailable Allison, K Debra MD Unavailable Unavailable Allison, K Debra MD Unavailable Unavailable Allison, K Debra MD Unavailable Unavailable Allison, K Debra MD Unavailable Unavailable Silverio, R Guanako PA Unavailable Silverio, R Guanako PA Unavailable Silverio, R Guanako PA Unavailable Silverio, R Guanako PA Unavailable Silverio, R Guanako PA Unavailable Silverio, R Guanako PA Unavailable Silverio, R Guanako PA Unavailable Silverio, R Guanako PA Unavailable Silverio, R Guanako PA Unavailable Silverio, R Guanako PA Unavailable Silverio, R Guanako PA Unavailable Sreedhar LOVE MD Unavailable Unavailable Sreedhar LOVE MD Unavailable Unavailable Sreedhar LOVE MD Unavailable Unavailable Sreedhar LOVE MD Unavailable Unavailable Sreedhar LOVE MD Unavailable Unavailable Sreedhar LOVE MD Unavailable Unavailable Sreedhar LOVE MD Unavailable Unavailable Sreedhar LOVE MD Unavailable Unavailable Sreedhar LOVE MD Unavailable Unavailable Sreedhar LOVE MD Unavailable Unavailable Sreedhar LOVE MD Unavailable Unavailable Sreedhar LOVE MD Unavailable Unavailable Sreedhar LOVE MD Unavailable Unavailable Sreedhar LOVE MD Unavailable Unavailable Sreedhar LOVE MD Unavailable Unavailable Sreedhar LOVE MD Unavailable Unavailable Sreedhar LOVE MD Unavailable Unavailable Sreedhar LOVE MD Unavailable Unavailable Sreedhar LOVE MD Unavailable Unavailable Sreedhar LOVE MD Unavailable Unavailable Sreedhar LOVE MD Unavailable Unavailable Sreedhar LOVE MD Unavailable Unavailable KTAE, F ARIEL MD Unavailable Unavailable KATE, F ARIEL MD Unavailable Unavailable KATE, F ARIEL MD Unavailable Unavailable KATE, F ARIEL MD Unavailable Unavailable KATE, F ARIEL MD Unavailable Unavailable KATE, F ARIEL MD Unavailable Unavailable KATE, F ARIEL MD Unavailable Unavailable KATE, F ARIEL MD Unavailable Unavailable KATE, F ARIEL MD Unavailable Unavailable KATE, F ARIEL MD Unavailable Unavailable KATE, F ARIEL MD Unavailable Unavailable KATE, F ARIEL MD Unavailable Unavailable KATE, F ARIEL MD Unavailable Unavailable KATE, F ARIEL MD Unavailable Unavailable KATE, F ARIEL MD Unavailable Unavailable KATE, F ARIEL MD Unavailable Unavailable KATE, F ARIEL MD Unavailable Unavailable KATE, F ARIEL MD Unavailable Unavailable KATE, F ARIEL MD Unavailable Unavailable KATE, F ARIEL MD Unavailable Unavailable KATE, F ARIEL MD Unavailable Unavailable KATE, F ARIEL MD Unavailable Unavailable Re-disclosure Warning The records that you are about to access may contain information from federally-assisted alcohol or drug abuse programs. If such information is present, then the following federally mandated warning applies: This information has been disclosed to you from records protected by federal confidentiality rules (42 CFR part 2). The federal rules prohibit you from making any further disclosure of this information unless further disclosure is expressly permitted by the written consent of the person to whom it pertains or as otherwise permitted by 42 CFR part 2. A general authorization for the release of medical or other information is NOT sufficient for this purpose. The Federal rules restrict any use of the information to criminally investigate or prosecute any alcohol or drug abuse patient.The records that you are about to access may contain highly sensitive health information, the redisclosure of which is protected by Article 27-F of the [facility] Public Health law. If you continue you may have access to information: Regarding HIV / AIDS; Provided by facilities licensed or operated by the [facility] Office of Mental Health; or Provided by the [facility] Office for People With Developmental Disabilities. If such information is present, then the following [facility] mandated warning applies: This information has been disclosed to you from confidential records which are protected by state law. State law prohibits you from making any further disclosure of this information without the specific written consent of the person to whom it pertains, or as otherwise permitted by law. Any unauthorized further disclosure in violation of state law may result in a fine or chcf sentence or both. A general authorization for the release of medical or other information is NOT sufficient authorization for further disc losure. Allergies and Adverse Reactions Type Description Substance Reaction Status Data Source(s ) Drug allergy Drug allergy No Known Allergies [facility] Family History Family Member Name Family Member Gender Family Member Status Date o f Status Description Data Source(s) Unknown Unknown Problem MEDENT (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 [address] [place] [address] 01/01/2021 12:00:00 AM EDT eCW1 ([facility]) ( ESTOB) [facility] Est OB [address] [place] [address] 12/23/2020 12:00:00 AM EDT eCW1 ([facility]) [place] [address] [facility] [address] 12/17/2020 12:00:00 AM EDT eCW1 ([facility]) [place] [address] [facility] [address] 12/15/2020 12:00:00 AM EDT eCW1 ([facility]) [place] [address] [facility] [address] 11/16/2020 12:00:00 AM EDT eCW1 ([facility]) Emergency Attender: KELTON MORENO ED-ED 11/15 09:50:00 PM EDT - 11/15/2020 10:21:00 PM EDT MASTITIS? [facility] MASTITIS? Patient discharged. Unknown [address] [facility] [address] 11/11/2020 12:00:00 AM EDT eCW1 ([facility]) ( ESTOB) [facility] Est OB [address] [place] [address] 11/05/2020 12:00:00 AM EDT eCW1 ([facility]) ( ESTOB) [facility] Est OB [address] [place] [address] 10/29/2020 12:00:00 AM EDT eCW1 ([facility]) (WC ESTOB) [facility] [address] [place] [address] 10/21/2020 12:00:00 AM EDT eCW1 ([facility]) (WC ESTOB) [facility] [address] [place] [address] 10/07/2020 12:00:00 AM EDT eCW1 ([facility]) (WC ESTOB) [facility] [address] [place] [address] 09/23/2020 12:00:00 AM EDT eCW1 ([facility]) (WC ESTOB) [facility] [address] [place] [address] 09/09/2020 12:00:00 AM EDT eCW1 ([facility]) (WC ESTOB) [facility] [address] [place] [address] 08/25/2020 12:00:00 AM EDT eCW1 ([facility]) (WC ESTOB) [facility] [address] [place] [address] 08/11/2020 12:00:00 AM EDT eCW1 ([facility]) Unknown [address] [facility] [address] 08/04/2020 12:00:00 AM EDT eCW1 ([facility]) [place] [address] [facility] [address] 07/16/2020 12:00:00 AM EDT eCW1 ([facility]) (WC ESTOB) enter Est OB [address] [place] [address] 07/13/2020 12:00:00 AM EDT eCW1 ([facility]) Emergency Attender: Sandro Talavera RETAIL AREA MANAGER ED-ED 07/11 10:56:00 PM EDT - 07/12/2020 01:12:00 AM EDT 22 WKS PREG AND BLEEDING [facility] 22 WKS PREG AND BLEEDING Patient discharged. Outpatient Attender: OSIRIS LUCAS CARREON ED-IMAG 06/26 03:12:00 PM EDT - 06/26/2020 03:13:00 PM EDT ANATOMY [facility] ANATOMY Patient discharged. Outpatient CPSCAORT-LABEJN 06/23/2020 02:41:[address] [facility] Outpatient Attender: ARIEL LOVE MD ED-LABPNP 11:35:00 AM EDT - 06/23/2020 11:36:00 AM EDT R300 [facility] R300 Patient discharged. ( ESTOB) [facility] Est OB [address] [place] [address] 06/11/2020 12:00:00 AM EST eCW1 ([facility]) Emergency Attender: SOBIA VALERIO [facility] ED-ED 12/2020 06:58:00 PM EST - 05/12/2020 08:37:00 PM EST HEADACHE X3 DAYS [facility] HEADACHE X3 DAYS Patient discharged. ( ESTOB) [facility] Est OB [address] [place] [address] 05/11/2020 12:00:00 AM EST eCW1 ([facility]) Outpatient Attender: UNKNOWN [facility] 04/15/2020 02:31:00 PM E [facility] Outpatient Attender: Debra Allison MD ED-LAB 04/15/19 11:38:00 AM EST - 04/15/2020 11:39:00 AM EST [id number] [facility] [id number] Patient discharged. [place] [address] [facility] [address] 04/14/2020 12:00:00 AM EST eCW1 ([facility]) ( ESTOB) [facility] Est OB [address] [place] [address] 04/13/2020 12:00:00 AM EST eCW1 ([facility]) Emergency Attender: Ta MORENO ED-ED 10:31:00 PM EST - 04/06/2020 11:59:00 PM EST HEADACHE,NAUSEA [facility] HEADACHE,NAUSEA Patient discharged. Outpatient Attender: Juliano Mccormack ED-LABPNP 0 10:57:00 AM EST - 03/17/2020 10:58:00 AM EST SYMPTOMATIC [facility] SYMPTOMATIC Patient discharged. Outpatient CPSCAORT-LABEJN 01/01/2020 03:31:[address] [facility] Outpatient Attender: Elizabeth MORENO ED-LABGH 0 01/01/2020 11:54:00 AM EDT - 01/01/2020 11:55:00 AM EDT R39.9 [facility] R39.9 Patient discharged. Emergency Attender: Guanako MORENO ED-ED 020 08:12:00 PM EDT - 12/26/2019 09:39:00 PM EDT VOMITING, DIARRHEA [facility] VOMITING, DIARRHEA Patient discharged. Immunizations Vaccine Date Status Description Data Source(s) Tdap 09/09/2020 03:36:00 PM EDT completed e CW1 ([facility]) Tdap 09/09/2020 03:36:00 PM EDT completed e CW1 ([facility]) Tdap 09/09/2020 03:36:00 PM EDT completed e CW1 ([facility]) Tdap 09/09/2020 03:36:00 PM EDT completed e CW1 ([facility]) Tdap 09/09/2020 03:36:00 PM EDT completed e CW1 ([facility]) Tdap 09/09/2020 03:36:00 PM EDT completed e CW1 ([facility]) Tdap 09/09/2020 03:36:00 PM EDT completed e CW1 ([facility]) Tdap 09/09/2020 03:36:00 PM EDT completed e CW1 ([facility]) Tdap 09/09/2020 03:36:00 PM EDT completed e CW1 ([facility]) Tdap 09/09/2020 03:36:00 PM EDT completed e CW1 ([facility]) Tdap 09/09/2020 03:36:00 PM EDT completed e CW1 ([facility]) Tdap 09/09/2020 03:36:00 PM EDT completed e CW1 ([facility]) Tdap 09/09/2020 03:36:00 PM EDT completed e CW1 ([facility]) 08/25/2020 03:22:00 PM EDT completed e CW1 ([facility]) 08/25/2020 03:22:00 PM EDT completed e CW1 ([facility]) 08/25/2020 03:22:00 PM EDT completed e CW1 ([facility]) 08/25/2020 03:22:00 PM EDT completed e CW1 ([facility]) 08/25/2020 03:22:00 PM EDT completed e CW1 ([facility]) 08/25/2020 03:22:00 PM EDT completed e CW1 ([facility]) 08/25/2020 03:22:00 PM EDT completed e CW1 ([facility]) 08/25/2020 03:22:00 PM EDT completed e CW1 ([facility]) 08/25/2020 03:22:00 PM EDT completed e CW1 ([facility]) 08/25/2020 03:22:00 PM EDT completed e CW1 ([facility]) 08/25/2020 03:22:00 PM EDT completed e CW1 ([facility]) 08/25/2020 03:22:00 PM EDT completed e CW1 ([facility]) 08/25/2020 03:22:00 PM EDT completed e CW1 ([facility]) 08/25/2020 03:22:00 PM EDT completed e CW1 ([facility]) Medications Medication Brand Name Start Date Product Form Dose Route Admi nistrative Instructions Pharmacy Instructions Status Indications Reaction Description Data Source(s) Clindamycin 300 MG Oral Capsule CLINDAMYCIN HCL 11/16/2020 12:00 :00 AM EDT capsule 40 TAKE ONE CAPSULE BY MOUTH FOUR T IMES A DAY TAKE ONE CAPSULE BY MOUTH FOUR TIMES A DAY SOLD: 11/16/2020 [facility] 324 mg (65 mg iron) 08/26/2020 12:00:00 AM EDT tablet, delayed release (DR/EC) 60 TAKE ONE TABLET BY MOUTH TWO TIMES A DAY TAKE ONE TABLET BY MOUTH TWO TIMES A DAY SOLD: 08/28/2020 [facility] Omeprazole 40 MG Delayed Release Oral Capsule Omeprazole 40 MG 08/25/2020 12:00:00 AM EDT active Omeprazo le 40 MG eCW1 ([facility]) Omeprazole 40 MG Delayed Release Oral Capsule Omeprazole 40 MG 08/25/2020 12:00:00 AM EDT active Omeprazo le 40 MG eCW1 ([facility]) Omeprazole 40 MG Delayed Release Oral Capsule Omeprazole 40 MG 08/25/2020 12:00:00 AM EDT active Omeprazo le 40 MG eCW1 ([facility]) Omeprazole 40 MG Delayed Release Oral Capsule Omeprazole 40 MG 08/25/2020 12:00:00 AM EDT active Omeprazo le 40 MG eCW1 ([facility]) Ferrous Sulfate 324 (65 Fe) MG Ferrous Sulfate 324 (65 Fe) M G 08/25/2020 12:00:00 AM EDT 1.0 {tablet} active Fe rrous Sulfate 324 (65 Fe) MG eCW1 ([facility]) Omeprazole 40 MG Delayed Release Oral Capsule Omeprazole 40 MG 08/25/2020 12:00:00 AM EDT active Omeprazo le 40 MG eCW1 ([facility]) 40 mg 08/25/2020 12:00:00 AM EDT capsule,delayed release (DR/EC) 30 TAKE ONE CAPSULE BY MOUTH EVERY DAY 30 MINUTES BEFORE MORNING MEAL TAKE ONE CAPSULE BY MOUTH EVERY DAY 30 MINUTES BEFORE MORNING MEAL SOLD: 10/08/2020 [facility] Omeprazole 40 MG Delayed Release Oral Capsule Omeprazole 40 MG 08/25/2020 12:00:00 AM EDT suspended Omepr azole 40 MG eCW1 ([facility]) Omeprazole 40 MG Delayed Release Oral Capsule Omeprazole 40 MG 08/25/2020 12:00:00 AM EDT active Omeprazo le 40 MG eCW1 ([facility]) Omeprazole 40 MG Delayed Release Oral Capsule Omeprazole 40 MG 08/25/2020 12:00:00 AM EDT active Omeprazo le 40 MG eCW1 ([facility]) Ferrous Sulfate 324 (65 Fe) MG Ferrous Sulfate 324 (65 Fe) G 08/25/2020 12:00:00 AM EDT 1.0 {tablet} active Fe rrous Sulfate 324 (65 Fe) MG eCW1 ([facility]) Ferrous Sulfate 324 (65 Fe) MG Ferrous Sulfate 324 (65 Fe) G 08/25/2020 12:00:00 AM EDT 1.0 {tablet} suspended Ferrous Sulfate 324 (65 Fe) MG eCW1 ([facility]) Ferrous Sulfate 324 (65 Fe) MG Ferrous Sulfate 324 (65 Fe) [facility] 08/25/2020 12:00:00 AM EDT 1.0 {tablet} active Fe rrous Sulfate 324 (65 Fe) MG eCW1 ([facility]) Ferrous Sulfate 324 (65 Fe) MG Ferrous Sulfate 324 (65 Fe) G 08/25/2020 12:00:00 AM EDT 1.0 {tablet} active Fe rrous Sulfate 324 (65 Fe) MG eCW1 ([facility]) Ferrous Sulfate 324 (65 Fe) MG Ferrous Sulfate 324 (65 Fe) G 08/25/2020 12:00:00 AM EDT 1.0 {tablet} active Fe rrous Sulfate 324 (65 Fe) MG eCW1 ([facility]) Ferrous Sulfate 324 (65 Fe) MG Ferrous Sulfate 324 (65 Fe) G 08/25/2020 12:00:00 AM EDT 1.0 {tablet} active eCW1 ([facility]) Ferrous Sulfate 324 (65 Fe) MG Ferrous Sulfate 324 (65 Fe) G 08/25/2020 12:00:00 AM EDT 1.0 {tablet} active Fe rrous Sulfate 324 (65 Fe) MG eCW1 ([facility]) Omeprazole 40 MG Delayed Release Oral Capsule Omeprazole 40 MG 08/25/2020 12:00:00 AM EDT active e CW1 ([facility]) Omeprazole 40 MG Delayed Release Oral Capsule Omeprazole 40 MG 08/25/2020 12:00:00 AM EDT active Omeprazo le 40 MG eCW1 ([facility]) Ferrous Sulfate 324 (65 Fe) MG Ferrous Sulfate 324 (65 Fe) G 08/25/2020 12:00:00 AM EDT 1.0 {tablet} active Fe rrous Sulfate 324 (65 Fe) MG eCW1 ([facility]) Ferrous Sulfate 324 (65 Fe) MG Ferrous Sulfate 324 (65 Fe) M G 08/25/2020 12:00:00 AM EDT 1.0 {tablet} active Fe rrous Sulfate 324 (65 Fe) MG eCW1 ([facility]) Ferrous Sulfate 324 (65 Fe) MG Ferrous Sulfate 324 (65 Fe) G 08/25/2020 12:00:00 AM EDT 1.0 {tablet} active Fe rrous Sulfate 324 (65 Fe) MG eCW1 ([facility]) Omeprazole 40 MG Delayed Release Oral Capsule Omeprazole 40 MG 08/25/2020 12:00:00 AM EDT active Omeprazo le 40 MG eCW1 ([facility]) Omeprazole 40 MG Delayed Release Oral Capsule Omeprazole 40 MG 08/25/2020 12:00:00 AM EDT active Omeprazo le 40 MG eCW1 ([facility]) 40 mg 08/25/2020 12:00:00 AM EDT capsule,delayed release (DR/EC) 30 TAKE ONE CAPSULE BY MOUTH EVERY DAY 30 MINUTES BEFORE MORNING MEAL TAKE ONE CAPSULE BY MOUTH EVERY DAY 30 MINUTES BEFORE MORNING MEAL SOLD: 08/25/2020 [facility] Ferrous Sulfate 324 (65 Fe) MG Ferrous Sulfate 324 (65 Fe) G 08/25/2020 12:00:00 AM EDT 1.0 {tablet} active Fe rrous Sulfate 324 (65 Fe) MG eCW1 ([facility]) 500 mg 06/23/2020 12:00:00 AM EDT capsule 15 TAKE ONE CAPSULE BY MOUTH EVERY 8 HOURS TAKE ONE CAPSULE BY MOUTH EVERY 8 HOURS SOLD: 06/23/2020 [facility] 0.05 % 06/12/2020 12:00:00 AM EST cream 15 APPLY A THIN LAYER TO HIPS TWO TIMES A DAY APPLY A THIN LAYER TO HIPS TWO TIMES A DAY SOLD: 06/12/2020 [facility] Clobetasol Prop Emollient Base 0.05 % Clobetasol Prop Emolli ent Base 0.05 % 06/11/2020 12:00:00 AM EST active Clobetasol Prop Emollient Base 0.05 % eCW1 ([facility]) Clobetasol Prop Emollient Base 0.05 % Clobetasol Prop Emolli ent Base 0.05 % 06/11/2020 12:00:00 AM EST suspended Clobetasol Prop Emollient Base 0.05 % eCW1 ([facility]) Clobetasol Prop Emollient Base 0.05 % Clobetasol Prop Emolli ent Base 0.05 % 06/11/2020 12:00:00 AM EST active Clobetasol Prop Emollient Base 0.05 % eCW1 ([facility]) Clobetasol Prop Emollient Base 0.05 % Clobetasol Prop Emolli ent Base 0.05 % 06/11/2020 12:00:00 AM EST suspended Clobetasol Prop Emollient Base 0.05 % eCW1 ([facility]) Clobetasol Prop Emollient Base 0.05 % Clobetasol Prop Emolli ent Base 0.05 % 06/11/2020 12:00:00 AM EST suspended Clobetasol Prop Emollient Base 0.05 % eCW1 ([facility]) Clobetasol Prop Emollient Base 0.05 % Clobetasol Prop Emolli ent Base 0.05 % 06/11/2020 12:00:00 AM EST suspended Clobetasol Prop Emollient Base 0.05 % eCW1 ([facility]) Clobetasol Prop Emollient Base 0.05 % Clobetasol Prop Emolli ent Base 0.05 % 06/11/2020 12:00:00 AM EST suspended Clobetasol Prop Emollient Base 0.05 % eCW1 ([facility]) Clobetasol Prop Emollient Base 0.05 % Clobetasol Prop Emolli ent Base 0.05 % 06/11/2020 12:00:00 AM EST active Clobetasol Prop Emollient Base 0.05 % eCW1 ([facility]) Clobetasol Prop Emollient Base 0.05 % Clobetasol Prop Emolli ent Base 0.05 % 06/11/2020 12:00:00 AM EST suspended Clobetasol Prop Emollient Base 0.05 % eCW1 ([facility]) Clobetasol Prop Emollient Base 0.05 % Clobetasol Prop Emolli ent Base 0.05 % 06/11/2020 12:00:00 AM EST suspended Clobetasol Prop Emollient Base 0.05 % eCW1 ([facility]) Clobetasol Prop Emollient Base 0.05 % Clobetasol Prop Emolli ent Base 0.05 % 06/11/2020 12:00:00 AM EST suspended Clobetasol Prop Emollient Base 0.05 % eCW1 ([facility]) Clobetasol Prop Emollient Base 0.05 % Clobetasol Prop Emolli ent Base 0.05 % 06/11/2020 12:00:00 AM EST active Clobetasol Prop Emollient Base 0.05 % eCW1 ([facility]) Clobetasol Prop Emollient Base 0.05 % Clobetasol Prop Emolli ent Base 0.05 % 06/11/2020 12:00:00 AM EST suspended Clobetasol Prop Emollient Base 0.05 % eCW1 ([facility]) Clobetasol Prop Emollient Base 0.05 % Clobetasol Prop Emolli ent Base 0.05 % 06/11/2020 12:00:00 AM EST suspended eCW1 ([facility]) Clobetasol Prop Emollient Base 0.05 % Clobetasol Prop Emolli ent Base 0.05 % 06/11/2020 12:00:00 AM EST suspended Clobetasol Prop Emollient Base 0.05 % eCW1 ([facility]) Clobetasol Prop Emollient Base 0.05 % Clobetasol Prop Emolli ent Base 0.05 % 06/11/2020 12:00:00 AM EST suspended Clobetasol Prop Emollient Base 0.05 % eCW1 ([facility]) 50-325-40 mg 05/13/2020 12:00:00 AM EST capsule 30 TAKE ONE CAPSULE BY MOUTH EVERY 4 HOURS NEEDED TAKE ONE CAPSULE BY MOUTH EVERY 4 HOURS NEEDED SOLD : 05/13/2020 [facility] Acetaminophen 300 MG / butalbital 50 MG / Caffeine 40 MG Oral Capsule [Fioricet] Fioricet 50-300-40 MG Fioricet 50-300-40 MG 05/11/2020 12:00:00 AM EST 1.0 {capsule_as_needed} suspended Fioricet 5 0-300-40 MG eCW1 ([facility]) Acetaminophen 300 MG / butalbital 50 MG / Caffeine 40 MG Oral Capsule [Fioricet] Fioricet 50-300-40 MG Fioricet 50-300-40 MG 05/11/2020 12:00:00 AM EST 1.0 {capsule_as_needed} suspended Fioricet 5 0-300-40 MG eCW1 ([facility]) Acetaminophen 300 MG / butalbital 50 MG / Caffeine 40 MG Oral Capsule [Fioricet] Fioricet 50-300-40 MG Fioricet 50-300-40 MG 05/11/2020 12:00:00 AM EST 1.0 {capsule_as_needed} active Fioricet 50- 300-40 MG eCW1 ([facility]) Acetaminophen 300 MG / butalbital 50 MG / Caffeine 40 MG Oral Capsule [Fioricet] Fioricet 50-300-40 MG Fioricet 50-300-40 MG 05/11/2020 12:00:00 AM EST 1.0 {capsule_as_needed} suspended Fioricet 5 0-300-40 MG eCW1 ([facility]) Acetaminophen 300 MG / butalbital 50 MG / Caffeine 40 MG Oral Capsule [Fioricet] Fioricet 50-300-40 MG Fioricet 50-300-40 MG 05/11/2020 12:00:00 AM EST 1.0 {capsule_as_needed} suspended Fioricet 5 0-300-40 MG eCW1 ([facility]) Acetaminophen 300 MG / butalbital 50 MG / Caffeine 40 MG Oral Capsule [Fioricet] Fioricet 50-300-40 MG Fioricet 50-300-40 MG 05/11/2020 12:00:00 AM EST 1.0 {capsule_as_needed} suspended Fioricet 5 0-300-40 MG eCW1 ([facility]) Acetaminophen 300 MG / butalbital 50 MG / Caffeine 40 MG Oral Capsule [Fioricet] Fioricet 50-300-40 MG Fioricet 50-300-40 MG 05/11/2020 12:00:00 AM EST 1.0 {capsule_as_needed} active Fioricet 50- 300-40 MG eCW1 ([facility]) Acetaminophen 300 MG / butalbital 50 MG / Caffeine 40 MG Oral Capsule [Fioricet] Fioricet 50-300-40 MG Fioricet 50-300-40 MG 05/11/2020 12:00:00 AM EST 1.0 {capsule_as_needed} suspended Fioricet 5 0-300-40 MG eCW1 ([facility]) Acetaminophen 300 MG / butalbital 50 MG / Caffeine 40 MG Oral Capsule [Fioricet] Fioricet 50-300-40 MG Fioricet 50-300-40 MG 05/11/2020 12:00:00 AM EST 1.0 {capsule_as_needed} active Fioricet 50- 300-40 MG eCW1 ([facility]) Acetaminophen 300 MG / butalbital 50 MG / Caffeine 40 MG Oral Capsule [Fioricet] Fioricet 50-300-40 MG Fioricet 50-300-40 MG 05/11/2020 12:00:00 AM EST 1.0 {capsule_as_needed} suspended Fioricet 5 0-300-40 MG eCW1 ([facility]) Acetaminophen 300 MG / butalbital 50 MG / Caffeine 40 MG Oral Capsule [Fioricet] Fioricet 50-300-40 MG Fioricet 50-300-40 MG 05/11/2020 12:00:00 AM EST 1.0 {capsule_as_needed} suspended Fioricet 5 0-300-40 MG eCW1 ([facility]) Acetaminophen 300 MG / butalbital 50 MG / Caffeine 40 MG Oral Capsule [Fioricet] Fioricet 50-300-40 MG Fioricet 50-300-40 MG 05/11/2020 12:00:00 AM EST 1.0 {capsule_as_needed} suspended Fioricet 5 0-300-40 MG eCW1 ([facility]) Acetaminophen 300 MG / butalbital 50 MG / Caffeine 40 MG Oral Capsule [Fioricet] Fioricet 50-300-40 MG Fioricet 50-300-40 MG 05/11/2020 12:00:00 AM EST 1.0 {capsule_as_needed} active Fioricet 50- 300-40 MG eCW1 ([facility]) Acetaminophen 300 MG / butalbital 50 MG / Caffeine 40 MG Oral Capsule [Fioricet] Fioricet 50-300-40 MG Fioricet 50-300-40 MG 05/11/2020 12:00:00 AM EST 1.0 {capsule_as_needed} suspended Fioricet 5 0-300-40 MG eCW1 ([facility]) Acetaminophen 300 MG / butalbital 50 MG / Caffeine 40 MG Oral Capsule [Fioricet] Fioricet 50-300-40 MG Fioricet 50-300-40 MG 05/11/2020 12:00:00 AM EST 1.0 {capsule_as_needed} active Fioricet 50- 300-40 MG eCW1 ([facility]) Acetaminophen 300 MG / butalbital 50 MG / Caffeine 40 MG Oral Capsule [Fioricet] Fioricet 50-300-40 MG Fioricet 50-300-40 MG 05/11/2020 12:00:00 AM EST 1.0 {capsule_as_needed} suspended Fioricet 5 0-300-40 MG eCW1 ([facility]) Acetaminophen 300 MG / butalbital 50 MG / Caffeine 40 MG Oral Capsule [Fioricet] Fioricet 50-300-40 MG Fioricet 50-300-40 MG 05/11/2020 12:00:00 AM EST 1.0 {capsule_as_needed} suspended eC W1 ([facility]) 4 mg 04/16/2020 12:00:00 AM EST tablet,disintegrating 3 0 DISSOLVE ONE TABLET ON TONGUE EVERY 8 HOURS NEEDED DISSOLVE ONE TABLET ON TONGUE EVERY 8 HO URS NEEDED SOLD: 2020 [facility] 4 mg 04/16/2020 12:00:00 AM EST tablet,disintegrating 3 0 DISSOLVE ONE TABLET ON TONGUE EVERY 8 HOURS NEEDED DISSOLVE ONE TABLET ON TONGUE EVERY 8 HO URS NEEDED SOLD: 04/18/2020 [facility] 4 mg 12/27/2019 12:00:00 AM EDT tablet,disintegrating 2 0 DISSOLVE ONE TABLET ON TONGUE EVERY 6 HOURS DISSOLVE ONE TABLET ON TONGUE EVERY 6 HOURS SOLD: 12/28/2019 [facility] Escitalopram 10 MG Oral Tablet ESCITALOPRAM OXALATE 12/25/2019 1 2:00:00 AM EDT tablet 30 TAKE ONE TABLET BY MOUTH EVERY D AY TAKE ONE TABLET BY MOUTH EVERY DAY SOLD: 03/06/2020 [facility] Escitalopram 10 MG Oral Tablet ESCITALOPRAM OXALATE 12/25/2019 1 2:00:00 AM EDT tablet 30 TAKE ONE TABLET BY MOUTH EVERY D AY TAKE ONE TABLET BY MOUTH EVERY DAY SOLD: 12/25/2019 [facility] Escitalopram 10 MG Oral Tablet ESCITALOPRAM OXALATE 12/25/2019 1 2:00:00 AM EDT tablet 30 TAKE ONE TABLET BY MOUTH EVERY D AY TAKE ONE TABLET BY MOUTH EVERY DAY SOLD: 01/31/2020 [facility] Insurance Providers Payer name Policy type / Coverage type Policy ID Covered republican ID Covered republican's relationship to ballesteros Policy Ballesteros Plan Information [facility] Health Maintenance Organization [place] [id number] Self [id number] [facility] Health Maintenance Organization [place] [id number] [facility] [id number] SP [id number] [facility] [id number] SP [id number] 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 [id number] [employer] [facility] MEDICAID MCD HMO [id number] S [id number] [facility] [id number] S [id number] [facility] MEDICAID [facility] [id number] S [id number] [facility] [id number] S [id number] [facility] WC [id number] S [id number] MEDICAID -PHYSICIAN [id number] 1 [id number] MEDICAID -O/P [id number] 18 [id number] [facility] PLAN [id number] 18 [id number] [employer] -PHYSICIAN [id number] 18 [id number] [employer] -O/P [id number] 18 [id number] MEDICAID -PHYSICIAN [id number] 1 [id number] MEDICAID -O/P [id number] 18 [id number] MEDICAID [id number] SP [id number] BCBS [facility] [id number] [id number] SP [id number] BLUE CROSS OTHER 1 [id number] SP [id number] [facility] [address] [id number] 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 [id number] SP [id number] [facility] [id number] SP [id number] Problems, Conditions, and Diagnoses Code Display Name Description Problem Type Effective Dates Data Source(s) R30.0 Dysuria DYSURIA Diagnosis 06/23/2020 11:35:00 AM ED T [facility] Z34.91 Encounter for supervision of normal , unspecified, first trimester ENCNTR FOR SUPRVSN OF NORMAL PREG, UNSP, FIRST TRIMESTER Cadence gnosis 04/15/2020 11:38:00 AM EST [facility] R39.9 Unspecified symptoms and signs involving the genitourinary system UNSP SYMPTOMS AND SIGNS INVOLVING THE GENITOURINARY SYSTEM Diagnosis 01/01/2020 11:54:00 AM EDT [facility] O99.213 Obesity complicating , third tr imester Obesity complicating in third trimester Problem 09/09/2020 12:00:00 AM EDT eC1 ([facility]) Z34.80 care Supervision of other normal P daryl 04/13/2020 12:00:00 AM EST [facility] ([facility]) Surgeries/Procedures Procedure Description Date Indications Data Source(s) Non-covered item or service 11/15/2020 12:00:00 AM [facility] EMERGENCY DEPARTMENT VISIT MODERATE SEVERITY 12:00:00 AM [facility] 08/25/2020 12:00:00 AM EDT e CW1 ([facility]) US UTERUS LIMITED 1/> FETUSES 07/11/2020 12:0 0:00 AM [facility] URINALYSIS MICROSCOPIC ONLY MICROSCOPIC EXAM OF URINE 2020 12:00:00 AM [facility] BLOOD TYPING RH D BLOOD TYPING SEROLOGIC RH(D) 04/15/2020 12:00:00 AM [facility] BLOOD TYPING ABO BLOOD TYPING SEROLOGIC ABO 04/15/2020 12:00:00 AM [facility] ANTIBODY SCREEN RBC EACH SERUM TECHNIQUE RBC ANTIBODY SCREEN 04/15/2020 12:00:00 AM [facility] IADNA NEISSERIA GONORRHOEAE AMPLIFIED PROBE TQ N.GONORRHOEAE DNA AMP PROB 04/15/2020 12:00:00 AM [facility] IADNA CHLAMYDIA TRACHOMATIS AMPLIFIED PROBE TQ CHYLMD TRACH DNA AMP PROBE 04/15/2020 12:00:00 AM [facility] IAAD EIA HEPATITIS B SURFACE ANTIGEN HEPATITIS B SURFACE AG IA 04/15/2020 12:00:00 AM [facility] ANTIBODY TREPONEMA PALLIDUM TREPONEMA PALLIDUM 04/15/2020 12:00:00 AM [facility] IAAD EIA HIV-1 AG W/HIV-1&HIV-2 ANTBDY SINGLE HIV-1 AG W/HIV -1 & HIV-2 AB 04/15/2020 12:00:00 AM [facility] ANTIBODY RUBELLA RUBELLA ANTIBODY 04/15/2020 12:00:00 AM [facility] HEPATITIS C ANTIBODY HEPATITIS C AB TEST 04/15/2020 12:00:00 AM [facility] COLLECTION VENOUS BLOOD VENIPUNCTURE ROUTINE VENIPUNCTURE 12:00:00 AM [facility] BLOOD COUNT COMPLETE AUTO&AUTO DIFRNTL WBC COUNT COMPLETE CB C W/AUTO DIFF WBC 04/15/2020 12:00:00 AM [facility] Results ID Date Data Source [id number] 11/09/2020 11:32:00 AM EDT [facility] Name Value Range Interpretation Code Description Data Deidra rce(s) Supporting Document(s) SARS coronavirus 2 RNA [Presence] in Res piratory specimen by DANIELLE with probe detection NEGATIVE [facility] This lab was ordered by [facility] a nd reported by [facility]. ID Date Data Source RH ONLY [facility] 08/11/2020 12:00:00 AM EDT eCW1 ([facility]) Name Value Range Interpretation Code Description Data Deidra rce(s) Supporting Document(s) NEGATIVE RH eCW1 ([facility]) ID Date Data Source RHOGAM 08/11/2020 12:00:00 AM EDT eCW1 ([facility]) Name Value Range Interpretation Code Description Data Deidra rce(s) Supporting Document(s) TRANSFUSED PRODUCT: RHOGAM CO UNT: 1 [facility] eCW1 ([facility]) ID Date Data Source Type and Screen (D Rh Antibody Screen) 08/11/2020 12:00:00 A M EDT eCW1 ([facility]) Name Value Range Interpretation Code Description Data Deidra rce(s) Supporting Document(s) A NEGATIVE BLOOD TYPE eCW1 ([facility]) NEGATIVE AB SCREEN (INDIRECT COOMB S)VIS eCW1 ([facility]) ID Date Data Source Glucose Challenge Test 1 Hour 08/11/2020 12:00:00 AM EDT eCW 1 ([facility]) Name Value Range Interpretation Code Description Data Deidra rce(s) Supporting Document(s) 72 LESS THAN 140 GLUCOSE CHALLENGE TEST 1 HOUR eCW1 ([facility]) ID Date Data Source CBC - Complete Blood Count 08/11/2020 12:00:00 AM EDT eCW1 ( [facility]) Name Value Range Interpretation Code Description Data Deidra rce(s) Supporting Document(s) 3.20 4.00-5.40 RED BLOOD COUNT eCW1 ([facility]) 8.3 4.0-10.0 WHITE BLOOD COUNT eCW1 ([facility]) 101.6 80.0-96.0 MEAN CORPUSCULAR VOLUME e CW1 ([facility]) 32.5 36.0-47.0 HEMATOCRIT eCW1 ([facility]) 10.6 12.0-15.5 HEMOGLOBIN eCW1 ([facility]) 32.6 32.0-36.5 MEAN CORPUSCULAR HGB CONC eCW1 ([facility]) 33.1 27.0-33.0 MEAN CORPUSCULAR HEMOGLOB IN eCW1 ([facility]) 11.8 11.5-14.5 RED CELL DISTRIBUTION WID TH eCW1 ([facility]) 203 150-450 PLATELET COUNT, AUTOMATED eCW1 ([facility]) ID Date Data Source URINE CULTURE 07/13/2020 12:00:00 AM EDT eCW1 ([facility]) Name Value Range Interpretation Code Description Data Deidra rce(s) Supporting Document(s) URINE CULTURE eCW1 ([facility]) ID Date Data Source [id number] 07/12/2020 12:55:00 AM EDT [facility] Imaging Services Department Imaging Report [address], [place] [address] %(RAD)RES..mtdd.print.filter("line") Name: ANGELICA CARR : 1990 Age/Sex: 30F Ordering Provider: Sandro Talavera NP Med Rec #: [id number] Reg Status: REG ER Room #: Date of Service: 07/11/20 Report Number: [id number] cc:JOSH White; Sandro Talavera NP Send Report To: EXAM: US Obstetrical, Complete >14 weeks. CLINICAL HISTORY:GH Vaginal bleeding after intercourse TECHNIQUE:Transabdominal imaging of the maternal pelvis and a > 14 week gestation with image documentation. COMPARISON:None provided. FINDINGS: FETUS: There is a single living intrauterine gestation. POSITION: position is transverse. HEART RATE: The heart rate is 133 beats per minute. BIOMETRICS: Not performed. ANATOMIC SURVEY: The visualized anatomy is unremarkable. Complete anatomic survey was not performed. PLACENTA:There is a 2.7 x 0.5 x 1.9 cm area of decreased echogenicity at the in ferior tip of the placenta. The placenta is anterior in position. There is no evidence of placenta previa. He AMNIOTIC FLUID: Within normal limits. CLARA = 18.3 cm. CERVIX: Closed. Unremarkable as visualized. 4.9 cm in length. IMPRESSION: Single live intrauterine gestation with likely small area of placental abruption. Time portable performed: Fluoroscopy time in seconds: Number of Exposures: Contrast Agent in ml: Method of Administration: REPORT SIGNATURE ON FILE Reported By: Isaias Johnson MD 07/12/20 005 Dictation Date/Time: 07/12/2054 Transcribed Date/Time: 07/12/2054 Chemical Processing Technician: Name Value Range Interpretation Code Description Data Deidra rce(s) Supporting Document(s) ID Date Data Source [id number] 06/28/2020 04:14:00 PM EDT [facility] Imaging Services Department Imaging Report [address] [place] [id number] %(RAD)RES..mtdd.print.filter("line") Name: ANGELICA CARR : 1990 Age/Sex: 30F Ordering Provider: Osiris Farrell CNM Med Rec #: [id number] Reg Status: DEP REF Room #: Date of Service: 06/26/20 Report Number: [id number] cc:JOSH White; Osiris Farrell CNM Send Report To: [id number] US/ Obstetrical Study Reason for exam: ANATOMY No prior relevant studies. FINDINGS: LMP: = EDC EGA = wks days EARLIEST ULT: N/A = EDC 021 EGA = 19 wks 5 days GESTATION: Single PRESENTATION: Breech, PLACENTAL LOCATION: Anterior CORD: 3 vessel INSERTION: Central CERVICAL LENGTH: 43.8 mm ANATOMY VISUALIZED: Four chamber view of the heart, brain and cerebellum appear normal. Chest, abdominal, and pelvic contents appear normal. Extremities and facial structures showed no abnormalities. MEASUREMENTS AND VALUES LISTED BELOW ARE BASED ON TODAY'S EXAM BPD: 42.3 mm 18 w 6 d +/- 12 d HC: 161.0 mm 18 w 6 d +/- 10 d AC: 133.1 mm 18 w 6 d +/- 14 d FL: 29.4 mm19w 0 d +/- 13 d HL: 28.8 mm 19 w 3 d+/- 23 d AVERAGE U/S AGE: 19 w 0 d EDC 11/20/2020 HC/AC: 1.21 (range 10.9-1.26) CI: 81.5 (range 74-83) EFW: 264 grams +/- 39 g (41%) FHR: 152 bpm CLARA: 11.4 cm IMPRESSION: Single live intrauterine gestation with FHR 152 bpm. Adequate amniotic fluid at 19 weeks 5 days. All anatomy is adequately visualized and appears unremarkable. REPORT SIGNATURE ON FILE Reported By: Gil Ramirez MD <Electronically signed by Gil Ramirez MD> 06/29/20 1156 Dictation Date/Time: 06/26/20 1716 Transcribed Date/Time: 06/28/20 1614 Chemical Processing Technician: SRIKANTH Name Value Range Interpretation Code Description Data Deidra rce(s) Supporting Document(s) ID Date Data Source [id number] 06/25/2020 10:02:00 AM EDT [facility] spital Procedure Performed By: [facility] [address] [place] [address] Director: Neil Maxwell MD QUANTITY: 100,000/mL {ESCHERICHIA COLI} ESCHERICHIA COLISCT Name Value Range Interpretation Code Description Data Deidra rce(s) Supporting Document(s) ID Date Data Source [id number] 06/25/2020 10:02:00 AM EDT [facility] spital Procedure Performed By: [facility] [address] [place] [address] Director: Neil Maxwell MD QUANTITY: 100,000/mL {ESCHERICHIA COLI} ESCHERICHIA COLISCT Name Value Range Interpretation Code Description Data Deidra rce(s) Supporting Document(s) Ampicillin Results entered -- not verified [facility] Cefazolin Susceptible. Indicates for microbiol ogy susceptibilities only. [facility] Cefepime Susceptible. Indicates for microbiol ogy susceptibilities only. [facility] ESBL - [facility] Ceftazadime Susceptible. Ind[facility]. [facility] Ceftriaxone Susceptible. Indicates for [facility] susceptibilities only. [facility] Ciprofloxacin 1 Susceptible. Ind icates for microbiology susceptibilities only. [facility] Ertapenem Susceptible. Indicates for microbiol ogy susceptibilities only. [facility] Gentamicin 4 Susceptible. Indicates for [facility] suscept[facility] only. [facility] Levofloxacin 1 Susceptible. Ind icates for microbiology susceptibilities only. [facility] Nitrofurantoin Susceptible. Ind icates for microbiology susceptibilities only. [facility] Pipercillin/Tazobactam Susceptib le. Indicates for microbiology susceptibilities only. [facility] Trimeth/Sulfamethoxazole Results entered -- not verified [facility] ID Date Data Source [id number] 06/25/2020 08:35:00 AM EDT [facility] Procedure Performed By: [facility] [address] [place] [address] Director: Neil Maxwell MD Name Value Range Interpretation Code Description Data Deidra rce(s) Supporting Document(s) Urine Culture [facility] ospital ID Date Data Source [id number] 06/25/2020 08:35:00 AM EDT [facility] Procedure Performed By: [facility] [address] [place] [address] Director: Neil Maxwell MD Name Value Range Interpretation Code Description Data Deidra rce(s) Supporting Document(s) Ampicillin Results entered -- not verified [facility] Cefazolin Susceptible. Indicates for microbiol ogy susceptibilities only. [facility] Cefepime Susceptible. Indicates for microbiol ogy susceptibilities only. [facility] Ceftazadime Susceptible. Indicates for m icrobiology susceptibilities only. [facility] Ceftriaxone Susceptible. Indicates for m icrobiology susceptibilities only. [facility] Ciprofloxacin 1 Susceptible. Ind icates for microbiology susceptibilities only. [facility] Ertapenem Susceptible. Indicates for microbiol ogy susceptibilities only. [facility] Gentamicin 4 Susceptible. Indicates for m icrobiology susceptibilities only. [facility] Levofloxacin 1 Susceptible. Ind icates for microbiology susceptibilities only. [facility] Nitrofurantoin Susceptible. Ind icates for microbiology susceptibilities only. [facility] Pipercillin/Tazobactam Susceptib le. Indicates for microbiology susceptibilities only. [facility] Trimeth/Sulfamethoxazole Results entered -- not verified [facility] ID Date Data Source [id number] 06/23/2020 12:39:00 PM EDT [facility] Name Value Range Interpretation Code Description Data Deidra rce(s) Supporting Document(s) Color,Urine Colorl-Dk Y Normal (applies to non-numeric res ults) [facility] Clarity,Urine Clear Normal (applies to non-numeric re sults) [facility] Specific [place],Urine 1.005-1.030 Normal (applies to non- numeric results) [facility] pH,Urine 5.0-8.0 Normal (applies to non-numeric resul ts) [facility] Protein,Urine Negative Normal (applies to non-numeric re sults) [facility] Glucose,Urine Negative Normal (applies to non-numeric re sults) [facility] Ketones,Urine Negative Normal (applies to non-numeric re sults) [facility] Bil[facility],U[facility] Negative Normal (applies to non-numeric results) [facility] Urobilinogen,Urine 0.2-1.0 Normal (applies to non-numer ic results) [facility] Leukocyte Esterase,Urine Negative [facility] Nitrite,Urine Negative Normal (applies to non-numeric re sults) [facility] RBC,Urine None Seen [facility] WBC,Urine None Seen [facility] Casts,Urine None Seen Normal (applies to non-numeric resu lts) [facility] Squamous Cells,Urine None Seen [facility] Amorphous Sediment,Urine None Seen [facility] Bacteria,Urine None Seen [facility] ital ID Date Data Source [id number] 04/15/2020 11:53:00 PM [facility] Name Value Range Interpretation Code Description Data Deidra rce(s) Supporting Document(s) BLOOD TYPE PATIENT A Negative Normal (applies to non-numer ic results) [facility] ANTIBODY SCREEN NEGATIVE Normal (applies to non-numeric results) [facility] ID Date Data Source [id number] 04/15/2020 11:53:00 PM [facility] Name Value Range Interpretation Code Description Data Deidra rce(s) Supporting Document(s) D VARIANT NEGATIVE Normal (applies to non-numeric resul ts) [facility] Administration of RhIG and transfusion o f Rh Negative Packed Red Blood Cells and/or Platelets are recommended when indicated. ID Date Data Source [id number] 04/24/2020 01:44:00 PM EST [facility] Name Value Range Interpretation Code Description Data Deidra rce(s) Supporting Document(s) TS ABO result Normal (applies to non-numeric re sults) [facility] TS Rh result Normal (applies to non-numeric res ults) [facility] TS ABS result Normal (applies to non-numeric re sults) [facility] Test Performed By: [facility] [address] [place] [address] Director: Caty Maxwell MD ID Date Data Source [id number] 04/16/2020 02:55:00 PM [facility] Name Value Range Interpretation Code Description Data Deidra rce(s) Supporting Document(s) Chlamydia,Urine Negative Normal (applies to non-numeric results) [facility] Test Performed By: [facility] [address] [place] [address] Director: Caty Maxwell MD . GC Urine Negative Normal (applies to non-numeric resul ts) [facility] Test Performed By: [place] [address] Director: Caty Maxwell MD . Methodology: Second generation nucleic acid amplification. ID Date Data Source [id number] 04/16/2020 10:52:00 AM EST [facility] Procedure Performed By: [facility] [address] [place] [address] Director: Neil Maxwell MD Name Value Range Interpretation Code Description Data Deidra rce(s) Supporting Document(s) Urine Culture Normal (applies to non-numeric re sults) [facility] ID Date Data Source [id number] 04/15/2020 08:34:00 PM EST [facility] Name Value Range Interpretation Code Description Data Deidra rce(s) Supporting Document(s) Hep C Ab-T Test Nonreactive Normal (applies to non-numeric results) [facility] Test Performed By: [facility] [address] [place] [address] Director: Caty Maxwell MD ID Date Data Source [id number] 04/15/2020 08:34:00 PM EST [facility] Value Range Interpretation Code Description Data Deidra rce(s) Supporting Document(s) Hep Bs Ag Result T-Test Nonreactive Normal (applies to non -numeric results) [facility] Test Performed By: [facility] [address] [place] [address] Director: Caty Maxwell MD ID Date Data Source [id number] 04/15/2020 08:34:00 PM EST [facility] Value Range Interpretation Code Description Data Deidra rce(s) Supporting Document(s) HIV 1/2 Ab p24 Ag Screen Nonreactive Normal (applies to non-numeric results) [facility] Test Performed By: [place] [address] Director: Caty Maxwell MD ID Date Data Source [id number] 04/15/2020 08:34:00 PM EST [facility] Value Range Interpretation Code Description Data Deidra rce(s) Supporting Document(s) Syphilis Serology Nonreactive Normal (applies to non-numer ic results) [facility] Test Performed By: [place] [address] Director: Caty Maxwell MD ID Date Data Source [id number] 04/15/2020 08:34:[address] [facility] Value Range Interpretation Code Description Data Deidra rce(s) Supporting Document(s) Rubella Ab,IgG >10.0 Normal (applies to non-numeric r esults) [facility] Test Performed By: [place] [address] Director: Caty Maxwell MD Interpretation of Results Less than 5.0 IU/mL - Negative for IgG antibodies to Rubella virus 5.0 - 9.9 IU/mL - Equivocal. Suggest repeat testing on new sample 10.0 IU/mL or greater - Positive for IgG antibodies to Rubella virus ID Date Data Source [id number] 04/16/2020 03:05:00 PM [facility] Name Value Range Interpretation Code Description Data Deidra rce(s) Supporting Document(s) Chlamydia,Urine result Negative Normal (applies to non-n umeric results) [facility] Test Performed By: [facility] [address] [place] [address] Director: Caty Maxwell MD . GC Urine result Negative Normal (applies to non-numeric results) [facility] Test Performed By: [facility] [address] [place] [address] Director: Caty Maxwell MD . Methodology: Second generation nucleic acid amplification. ID Date Data Source [id number] 04/16/2020 01:01:00 PM [facility] spital Procedure Performed By: [place] [address] Director: Neil Maxwell MD Mixed gustavo: Mixed gustavo, probable contamination. Name Value Range Interpretation Code Description Data Deidra rce(s) Supporting Document(s) ID Date Data Source [id number] 04/16/2020 08:54:00 AM [facility] Name Value Range Interpretation Code Description Data Deidra rce(s) Supporting Document(s) TS ABO result Normal (applies to non-numeric resul ts) [facility] TS Rh result Normal (applies to non-numeric result s) [facility] TS ABS result Normal (applies to non-numeric resul ts) [facility] ID Date Data Source [id number] 04/16/2020 12:37:00 AM [facility] Name Value Range Interpretation Code Description Data Deidra rce(s) Supporting Document(s) Hepatitis C Virus Ab result Nonreactive Norm al (applies to non-numeric results) [facility] Test Performed By: [facility] [address] [place] [address] Director: Caty Maxwell MD ID Date Data Source [id number] 04/16/2020 12:37:00 AM [facility] Name Value Range Interpretation Code Description Data Deidra rce(s) Supporting Document(s) Hep Bs Ag result T-Test Nonreactive Normal (applies to non -numeric results) [facility] Test Performed By: [place] [address] Director: Caty Maxwell MD ID Date Data Source [id number] 04/16/2020 12:37:00 AM [facility] Value Range Interpretation Code Description Data Deidra rce(s) Supporting Document(s) HIV Screen result Nonreactive Normal (applies to non-numer ic results) [facility] Test Performed By: [place] [address] Director: Caty Maxwell MD ID Date Data Source [id number] 04/16/2020 12:37:00 AM [facility] Value Range Interpretation Code Description Data Deidra rce(s) Supporting Document(s) Syphilis Serology result Nonreactive Normal (applies to non-numeric results) [facility] Test Performed By: [place] [address] Director: Caty Maxwell MD ID Date Data Source [id number] 04/16/2020 12:37:00 AM [facility] Value Range Interpretation Code Description Data Deidra rce(s) Supporting Document(s) Rubella Ab,IgG result >10.0 Normal (applies to non-nu meric results) [facility] Test Performed By: [place] [address] Director: Caty Maxwell MD Interpretation of Results Less than 5.0 IU/mL - Negative for IgG antibodies to Rubella virus 5.0 - 9.9 IU/mL - Equivocal. Suggest repeat testing on new sample 10.0 IU/mL or greater - Positive for IgG antibodies to Rubella virus ID Date Data Source [id number] 04/15/2020 12:45:00 PM [facility] Value Range Interpretation Code Description Data Deidra rce(s) Supporting Document(s) White Blood Count 3.5-10.5 Normal (applies to non-numeri c results) [facility] Red Blood Count 3.90-5.00 Below low normal [facility] Hemoglobin 12.0-15.5 Below low normal [facility] Hematocrit 34.9-44.5 Below low normal [facility] Mean Corpuscular Volume 81.2-95.1 Above high normal [facility] Mean Corpuscular Hgb 25.6-32.2 Above high normal [facility] Mean Corpuscular Hgb Conc 32.0-36.0 Normal (applies to no n-numeric results) [facility] Red Cell Distribution Width 11.9-15.5 Normal (appli es to non-numeric results) [facility] Platelet Count 203 x10 3/uL 150-450 Normal (applies to non-numeric results) [facility] Mean Platelet Volume 9.4-12.4 Normal (applies to non-num stephon results) [facility] Neutrophils% (Auto) 31.0-71.0 Normal (applies to non-nume janette results) [facility] Lymphocytes% (Auto) 20.0-55.0 Normal (applies to non-nume janette results) [facility] Monocytes% (Auto) 4.0-12.0 Normal (applies to non-numeri c results) [facility] Eosinophils% (Auto) 1.0-8.0 Below low normal [facility] Basophils% (Auto) 0.0-2.0 Normal (applies to non-numeri c results) [facility] Immature Granulocytes% (Auto) 0.0-2.0 Normal (kathy lies to non-numeric results) [facility] Neutrophils# (Auto) 1.50-6.20 Normal (applies to non-nume janette results) [facility] Lymphocytes# (Auto) 1.20-4.00 Normal (applies to non-nume janette results) [facility] Monocytes# (Auto) 0.00-0.90 Normal (applies to non-numeri c results) [facility] Eosinophils# (Auto) 0.00-0.50 Normal (applies to non-nume janette results) [facility] Basophils# (Auto) 0.00-0.20 Normal (applies to non-numeri c results) [facility] Immature Granulocytes# (Auto) 0.00-7.00 No rmal (applies to non-numeric results) [facility] ID Date Data Source [id number] 04/06/2020 11:39:00 PM EST [facility] Name Value Range Interpretation Code Description Data Deidra rce(s) Supporting Document(s) Sodium 138 mmol/L 136-145 Normal (applies to non-numeric resul ts) [facility] Potassium 3.5-5.1 Normal (applies to non-numeric resul ts) [facility] Chloride 102 mmol/L 98-107 Normal (applies to non-numeric resul ts) [facility] Carbon Dioxide CO2 21-32 Normal (applies to non-numer ic results) [facility] Anion Gap 5.0-16.0 Normal (applies to non-numeric resul ts) [facility] BUN 15 mg/dL 7-18 Normal (applies to non-numeric results) [facility] Creatinine,Serum 0.7-1.2 Normal (applies to non-numeric results) [facility] GFR >60 Normal (applies to non-numeric results) [facility] Glucose Level 92 mg/dL 60-99 Normal (applies to non-numeric re sults) [facility] Reference range is only applicable when patient is fasting Note the following drug interference: Sulfasalazine Sulfapyridine Can see falsely depressed Can see falsely elevated result with up to 17% results with up to 11% decrease in measurement increase in measurement Recommend patients be collected for this test prior to administration of either drug. Calcium 8.5-10.1 Normal (applies to non-numeric resul ts) [facility] ID Date Data Source [id number] 04/06/2020 11:29:00 PM EST [facility] Name Value Range Interpretation Code Description Data Deidra rce(s) Supporting Document(s) White Blood Count 3.5-10.5 Normal (applies to non-numeri c results) [facility] Red Blood Count 3.90-5.00 Below low normal [facility] Hemoglobin 12.0-15.5 Below low normal [facility] Hematocrit 34.9-44.5 Below low normal [facility] Mean Corpuscular Volume 81.2-95.1 Above high normal [facility] Mean Corpuscular Hgb 25.6-32.2 Above high normal [facility] Mean Corpuscular Hgb Conc 32.0-36.0 Normal (applies to no n-numeric results) [facility] Red Cell Distribution Width 11.9-15.5 Normal (appli es to non-numeric results) [facility] Platelet Count 176 x10 3/uL 150-450 Normal (applies to non-numeric results) [facility] Mean Platelet Volume 9.4-12.4 Below low normal [facility] Neutrophils% (Auto) 31.0-71.0 Normal (applies to non-nume janette results) [facility] Lymphocytes% (Auto) 20.0-55.0 Normal (applies to non-nume janette results) [facility] Monocytes% (Auto) 4.0-12.0 Normal (applies to non-numeri c results) [facility] Eosinophils% (Auto) 1.0-8.0 Below low normal [facility] Basophils% (Auto) 0.0-2.0 Normal (applies to non-numeri c results) [facility] Immature Granulocytes% (Auto) 0.0-2.0 Normal (kathy lies to non-numeric results) [facility] Neutrophils# (Auto) 1.50-6.20 Normal (applies to non-nume janette results) [facility] Lymphocytes# (Auto) 1.20-4.00 Normal (applies to non-nume janette results) [facility] Monocytes# (Auto) 0.00-0.90 Normal (applies to non-numeri c results) [facility] Eosinophils# (Auto) 0.00-0.50 Normal (applies to non-nume janette results) [facility] Basophils# (Auto) 0.00-0.20 Normal (applies to non-numeri c results) [facility] Immature Granulocytes# (Auto) 0.00-7.00 No rmal (applies to non-numeric results) [facility] ID Date Data Source [id number] 04/06/2020 10:17:00 AM EST [facility] Name Value Range Interpretation Code Description Data Deidra rce(s) Supporting Document(s) Respiratory specimen severe acute respir atory syndrome coronavirus 2 (SARS-CoV-2) RNA [facility] This lab was ordered by [facility] and reported by . ID Date Data Source [id number] 03/18/2020 08:37:00 AM EST [facility] Name Value Range Interpretation Code Description Data Deidra rce(s) Supporting Document(s) SARS-CoV-2 RNA INHOUSE Negative [facility] THIS IS A [facility] REPORTABLE COMMUNICABLE DISEASE. Results called 03/18/2036,/ALEJANDRO HAIRSTON read back information to [email or web address] Testing was performed using the [employer] COVID-19 MDx Assay. This test has been authorized by FDA under an (Emergency Use Authorization) EUA for use by authorized laboratories for individuals who are suspected of COVID-19 by their healthcare provider. This test is only authorized for the duration of the declaration that circumstances exist justifying the authorization of emergency use of in vitro diagnostic tests for detection and/or diagnosis of SARS-CoV-2. Methodology: Endpoint RT-PCR. Fact sheets for this EUA assay can be found at the following links: Providers: https://www.fda.gov/media/709088/download Patients : https://www.fda.gov/media/332824/download THIS IS A [facility] REPORTABLE COMMUNICABLE DISEASE Positive results are indicative of the presence of [id number]; clinical correlation with patient history and other diagnostic information is necessary to determine patient infection status. The agent detected may not be the definite cause of disease. Positive results do not rule out bacterial infection or co-infection with other viruses. ID Date Data Source [id number] 01/03/2020 11:11:00 AM EDT [facility] spital Procedure Performed By: [facility] [address] [place] [address] Director: Neil Maxwell MD Name Value Range Interpretation Code Description Data Deidra rce(s) Supporting Document(s) Urine Culture [facility] ID Date Data Source [id number] 01/03/2020 10:51:00 AM EDT [facility] Procedure Performed By: [facility] [address] [place] [address] Director: Neil Maxwell MD Name Value Range Interpretation Code Description Data Deidra rce(s) Supporting Document(s) Urine Culture [facility] ospital ID Date Data Source [id number] 01/01/2020 12:52:00 PM EDT [facility] Name Value Range Interpretation Code Description Data Deidra rce(s) Supporting Document(s) Color,Urine Colorl-Dk Y Normal (applies to non-numeric res ults) [facility] Clarity,Urine Clear Normal (applies to non-numeric re sults) [facility] Specific [place],Urine 1.005-1.030 Normal (applies to non- numeric results) [facility] pH,Urine 5.0-8.0 Normal (applies to non-numeric resul ts) [facility] Protein,Urine Negative Normal (applies to non-numeric re sults) [facility] Glucose,Urine Negative Normal (applies to non-numeric re sults) [facility] Ketones,Urine Negative Normal (applies to non-numeric re sults) [facility] Blood,Urine Negative Normal (applies to non-numeric resu lts) [facility] Bilirubin,Urine Negative Normal (applies to non-numeric results) [facility] Urobilinogen,Urine 0.2-1.0 Normal (applies to non-numer ic results) [facility] Leukocyte Esterase,Urine Negative [facility] Nitrite,Urine Negative Normal (applies to non-numeric re sults) [facility] RBC,Urine None Seen Normal (applies to non-numeric resul ts) [facility] WBC,Urine None Seen [facility] Casts,Urine None Seen Normal (applies to non-numeric resu lts) [facility] Squamous Cells,Urine None Seen [facility] Amorphous Sediment,Urine None Seen [facility] Bacteria,Urine None Seen [facility] ital Procedure Social History No Information Vital Signs ID Date Data Source UNK Name Value Range Interpretation Code Description Data Source(s) Body mass index (BMI) [Ratio] 37.49 kg/m2 37.49 kg/m2 eCW1 ([facility]) Systolic blood pressure 124 mm[Hg] 124 mm[Hg] e CW1 ([facility]) Body height 62 [in_i] 62 [in_i] eCW1 ([facility]) Body weight 205 [lb_av] 205 [lb_av] eCW1 ([facility]) Diastolic blood pressure 74 mm[Hg] 74 mm[Hg] eCW1 ([facility]) Body weight 200.0 [lb_av] 200.0 [lb_av] eCW1 ([facility]) Body height 62 [in_i] 62 [in_i] eCW1 ([facility]) Body mass index (BMI) [Ratio] 36.58 kg/m2 36.58 kg/m2 eCW1 ([facility]) Systolic blood pressure 134 mm[Hg] 134 mm[Hg] e CW1 ([facility]) Diastolic blood pressure 72 mm[Hg] 72 mm[Hg] eCW1 ([facility]) Body weight 215 [lb_av] 215 [lb_av] eCW1 ([facility]) Body height 62 [in_i] 62 [in_i] eCW1 ([facility]) Body mass index (BMI) [Ratio] 39.32 kg/m2 39.32 kg/m2 eCW1 ([facility]) Systolic blood pressure 124 mm[Hg] 124 mm[Hg] e CW1 ([facility]) Diastolic blood pressure 64 mm[Hg] 64 mm[Hg] eCW1 ([facility]) Body weight 210.2 [lb_av] 210.2 [lb_av] eCW1 ([facility]) Body weight 95.35 kg 95.35 kg eCW1 ([facility]) Body height 62 [in_i] 62 [in_i] eCW1 ([facility]) Body mass index (BMI) [Ratio] 38.446 kg/m2 38.4 46 kg/m2 eCW1 ([facility]) Systolic blood pressure 112 mm[Hg] 112 mm[Hg] e CW1 ([facility]) Diastolic blood pressure 66 mm[Hg] 66 mm[Hg] eCW1 ([facility]) Body weight 2166.6 [lb_av] 2166.6 [lb_av] eCW1 ([facility]) Body height 62 [in_i] 62 [in_i] eCW1 ([facility]) Body mass index (BMI) [Ratio] 37 kg/m2 37 kg/ m2 eCW1 ([facility]) Systolic blood pressure 110 mm[Hg] 110 mm[Hg] e CW1 ([facility]) Diastolic blood pressure 68 mm[Hg] 68 mm[Hg] eCW1 ([facility]) Body weight 207.6 [lb_av] 207.6 [lb_av] eCW1 ([facility]) Body weight 94.17 kg 94.17 kg eCW1 ([facility]) Body height 62 [in_i] 62 [in_i] eCW1 ([facility]) Body mass index (BMI) [Ratio] 37.971 kg/m2 37.9 71 kg/m2 eCW1 ([facility]) Systolic blood pressure 104 mm[Hg] 104 mm[Hg] e CW1 ([facility]) Diastolic blood pressure 70 mm[Hg] 70 mm[Hg] eCW1 ([facility]) Body weight 203.2 [lb_av] 203.2 [lb_av] eCW1 ([facility]) Body mass index (BMI) [Ratio] 37.166 kg/m2 37.1 66 kg/m2 eCW1 ([facility]) Systolic blood pressure 106 mm[Hg] 106 mm[Hg] e CW1 ([facility]) Diastolic blood pressure 70 mm[Hg] 70 mm[Hg] eCW1 ([facility]) Body weight 92.17 kg 92.17 kg eCW1 ([facility]) Body height 62 [in_i] 62 [in_i] eCW1 ([facility]) Body weight 201.8 [lb_av] 201.8 [lb_av] eCW1 ([facility]) Diastolic blood pressure 70 mm[Hg] 70 mm[Hg] eCW1 ([facility]) Body weight 91.53 kg 91.53 kg eCW1 ([facility]) Body height 62 [in_i] 62 [in_i] eCW1 ([facility]) Body mass index (BMI) [Ratio] 36.91 kg/m2 36.91 kg/m2 eCW1 ([facility]) Systolic blood pressure 104 mm[Hg] 104 mm[Hg] e CW1 ([facility]) Systolic blood pressure 104 mm[Hg] 104 mm[Hg] e CW1 ([facility]) Diastolic blood pressure 68 mm[Hg] 68 mm[Hg] eCW1 ([facility]) Body weight 200.8 [lb_av] 200.8 [lb_av] eCW1 ([facility]) Body weight 91.08 kg 91.08 kg eCW1 ([facility]) Body height 62 [in_i] 62 [in_i] eCW1 ([facility]) Body mass index (BMI) [Ratio] 36.727 kg/m2 36.7 27 kg/m2 eCW1 ([facility]) Body weight 201 [lb_av] 201 [lb_av] eCW1 ([facility]) Body height 62 [in_i] 62 [in_i] eCW1 ([facility]) Body mass index (BMI) [Ratio] 36.763 kg/m2 36.7 63 kg/m2 eCW1 ([facility]) Systolic blood pressure 118 mm[Hg] 118 mm[Hg] e CW1 ([facility]) Diastolic blood pressure 78 mm[Hg] 78 mm[Hg] eCW1 ([facility]) Body weight 87.45 kg 87.45 kg eCW1 ([facility]) Body weight 192.8 [lb_av] 192.8 [lb_av] eCW1 ([facility]) Body height 62 [in_i] 62 [in_i] eCW1 ([facility]) Body mass index (BMI) [Ratio] 35.26 kg/m2 35.26 kg/m2 eCW1 ([facility]) Systolic blood pressure 100 mm[Hg] 100 mm[Hg] e CW1 ([facility]) Diastolic blood pressure 60 mm[Hg] 60 mm[Hg] eCW1 ([facility]) Body weight 192 [lb_av] 192 [lb_av] eCW1 ([facility]) Body height 62 [in_i] 62 [in_i] eCW1 ([facility]) Body mass index (BMI) [Ratio] 35.117 kg/m2 35.1 17 kg/m2 eCW1 ([facility]) Systolic blood pressure 122 mm[Hg] 122 mm[Hg] e CW1 ([facility]) Diastolic blood pressure 62 mm[Hg] 62 mm[Hg] eCW1 ([facility]) Body weight 187 [lb_av] 187 [lb_av] eCW1 ([facility]) Body height 62 [in_i] 62 [in_i] eCW1 ([facility]) Body mass index (BMI) [Ratio] 34.203 kg/m2 34.2 03 kg/m2 eCW1 ([facility]) Systolic blood pressure 112 mm[Hg] 112 mm[Hg] e CW1 ([facility]) Diastolic blood pressure 66 mm[Hg] 66 mm[Hg] eCW1 ([facility]) Body weight 186 [lb_av] 186 [lb_av] eCW1 ([facility]) Body height 62 [in_i] 62 [in_i] eCW1 ([facility]) Body mass index (BMI) [Ratio] 34.02 kg/m2 34.02 kg/m2 eCW1 ([facility]) Systolic blood pressure 114 mm[Hg] 114 mm[Hg] e CW1 ([facility]) Diastolic blood pressure 80 mm[Hg] 80 mm[Hg] eCW1 ([facility]) ID Date Data Source [id number] 11/18/2020 07:31:00 AM EDT [facility] Name Value Range Interpretation Code Description Data Source(s) Weight Measurement Method 1 1 [facility] Weight 3216 3216 [facility] pital Temperature Source 7 7 [facility] Temperature 98.7 98.7 [facility] spital Respiratory Effort 1 1 [facility] Respiratory Rate 16 16 [facility] Pulse Assessment Method 4 4 [facility] 147/93 147/93 [facility] Weight Measurement Method 1 1 [facility] Weight 3216 3216 [facility] pital Temperature Source 7 7 [facility] Temperature 98.7 98.7 [facility] Respiratory Effort 1 1 [facility] Respiratory Rate 16 16 [facility] Pulse Assessment Method 4 4 [facility] Pulse Rate 75 75 [facility] Blood Pressure 147/93 147/93 [facility] Weight Measurement Method 1 1 [facility] Weight 3216 3216 [facility] pital Temperature Source 7 7 [facility] Temperature 98.7 98.7 [facility] Respiratory Effort 1 1 [facility] Respiratory Rate 16 16 [facility] Pulse Assessment Method 4 4 [facility] Pulse Rate 75 75 [facility] Blood Pressure 147/93 147/93 [facility] ID Date Data Source [id number] 07/12/2020 01:13:00 AM EDT [facility] Name Value Range Interpretation Code Description Data Source(s) Weight Measurement Method 8 8 [facility] Weight 288 288 [facility] pital Temperature Source 7 7 [facility] Temperature 97.6 97.6 [facility] Respiratory Effort 1 1 [facility] Respiratory [facility] 16 16 [facility] Pulse Assessment Method 4 4 [facility] Pulse Rate 84 84 [facility] pital Blood Pressure 129/66 129/66 [facility] Weight Measurement Method 8 8 [facility] Weight 288 288 [facility] pital Temperature Source 7 7 [facility] Temperature 97.6 97.6 [facility] spital Respiratory Effort 1 1 [facility] Respiratory Rate 16 16 [facility] Pulse Assessment Method 4 4 [facility] Pulse Rate 88 88 [facility] pital Blood Pressure 139/81 139/81 [facility] ID Date Data Source [id number] 05/12/2020 07:09:00 PM EST [facility] Name Value Range Interpretation Code Description Data Source(s) Weight Measurement Method 8 8 [facility] Weight 2992 2992 [facility] pital Temperature Source 1 1 [facility] Temperature 98.6 98.6 [facility] Respiratory Effort 1 1 [facility] Respiratory Rate 18 18 [facility] Pulse Assessment Method 4 4 [facility] Pulse Rate 67 67 [facility] pital Height 62 62 [facility] pital Blood Pressure 104/48 104/48 [facility] Weight Measurement Method 8 8 [facility] Weight 2992 2992 [facility] pital Temperature Source 1 1 [facility] Temperature 98.6 98.6 [facility] Respiratory Effort 1 1 [facility] Respiratory Rate 17 17 [facility] Pulse Assessment Method 4 4 [facility] Pulse Rate 101 101 [facility] pital Height 62 62 [facility] pital Blood Pressure 110/66 110/66 [facility] ID Date Data Source [id number] 04/07/2020 12:03:00 AM EST [facility] Name Value Range Interpretation Code Description Data Source(s) Weight Measurement Method 8 8 [facility] Weight 2880 2880 [facility] pital Temperature Source 1 1 [facility] Temperature 98.0 98.0 [facility] Respiratory Effort 1 1 [facility] Respiratory Rate 18 18 [facility] Pulse Assessment Method 4 4 [facility] Pulse Rate 97 97 [facility] pital Height 62 62 [facility] pital Blood Pressure 120/63 120/63 [facility] Weight Measurement Method 8 8 [facility] Weight 2880 2880 [facility] pital Temperature Source 1 1 [facility] Temperature 98.0 98.0 [facility] Respiratory Effort 1 1 [facility] Respiratory Rate 18 18 [facility] Pulse Assessment Method 4 4 [facility] Pulse Rate 97 97 [facility] pital Height 62 62 [facility] pital Blood Pressure 120/63 120/63 [facility] Weight Measurement Method 8 8 [facility] Weight 2880 2880 [facility] pital Temperature Source 1 1 [facility] Temperature 98.0 98.0 [facility] Respiratory Effort 1 1 [facility] Respiratory Rate 18 18 [facility] Pulse Assessment Method 4 4 [facility] Pulse Rate 97 97 [facility] pital Height 62 62 [facility] pital Blood Pressure 120/63 120/63 [facility] ID Date Data Source [id number] 12/26/2019 09:39:00 PM EDT [facility] Name Value Range Interpretation Code Description Data Source(s) Weight Measurement Method 8 8 [facility] Weight 2800 2800 [facility] pital Temperature Source 3 3 [facility] Temperature 97.6 97.6 [facility] Respiratory Effort 1 1 [facility] Respiratory Rate 18 18 [facility] Pulse Assessment Method 4 4 [facility] Pulse Rate 53 53 [facility] pital Height 61 61 [facility] pital Blood Pressure 106/64 106/64 [facility] Weight Measurement Method 8 8 [facility] Weight 2800 2800 [facility] pital Temperature Source 3 3 [facility] Temperature 97.2 97.2 [facility] spital Respiratory Effort 1 1 [facility] Respiratory Rate 16 16 [facility] Pulse Assessment Method 4 4 [facility] Pulse Rate 70 70 [facility] pital Height 61 61 [facility] pital Blood Pressure 114/60 114/60 [facility] Weight Measurement Method 8 8 [facility] Weight 2800 2800 [facility] pital Temperature Source 3 3 [facility] Temperature 97.2 97.2 [facility] spital Respiratory Effort 1 1 [facility] Respiratory Rate 16 16 [facility] Pulse Assessment Method 4 4 [facility] 70 70 [facility] 61 [facility] Blood Pressure 114/60 114/60 [facility] Patient Treatment Plan of Care Planned Activity Planned Date Details Description Data Source (s) Omeprazole 40 MG Delayed Release Oral Capsule 08/25/2020 12:00:00 A M EDT eCW1 ([facility]) Ferrous Sulfate 324 (65 Fe) MG 08/25/2020 12:00:00 AM EDT eCW1 ([facility]) Clobetasol Prop Emollient Base 0.05 % 06/11/2020 12:00:00 AM EST eCW1 ([facility]) Acetaminophen 300 MG / butalbital 50 MG / Caffeine 40 MG Oral Capsule [Fioricet] 05/11/2020 12:00:00 AM EST eCW1 ([facility])
--- OUTSIDE RECORDS SUMMARY | 2021-01-15 06:20 | CCD ---
Author Author [facility] Organization [facility] Address Unknown Phone Unavailable Care Team Providers Care Computer Hardware Developer Name Role Phone Jeff Harrison Unavailable PROBLEMS Type Condition ICD9-CM Code [id number] Code Onset Dates Condition S tatus W/U Status Risk SNOMED Code Notes Problem Supervision of other normal Z34.80 Ac tive confirm 024169657 Problem Obesity complicating in third trimester O99.213 Active confirmed ALLERGIES No Known Allergies ENCOUNTERS from 1989 to 2020-11-22 Encounter Location Date Provider Diagnosis [facility] [address] [place] [address] [place] [address] Nov, Jeff Harrison 38 weeks gestation o f Z3A.38 and Encounter for supervision of other normal in third trimester Z34.83 IMMUNIZATIONS Vaccine Route Administration Date Status TDAP 0.5mL Boostrix IM Intramuscular September 09, 2020 Administere d RHo D Immune Globulin 300mcg/1.5mL RhoGAM IM Intramuscular August 022020 Administered SOCIAL HISTORY Sex Assigned At : Social History Observation Description Sex Assigned At Unknown Language: Question Answer Notes Languages spoken: Congolese Domestic Violence: Question Answer Notes Status: Single No history of abuse Alcohol Screening: Question Answer Notes Did you have a drink containing alcohol in the past year? No Points 0 Interpretation Negative REASON FOR REFERRAL No Information VITAL SIGNS Weight 215 lbs Nov, Height 62 in Nov, BMI 39.32 kg/m2 Nov, Blood pressure systolic 124 mm Hg Nov, Blood pressure diastolic 64 mm Hg Nov, MEDICATIONS Medication SIG (Take, Route, Frequency, Duration) [...] Information RESULTS No Results REASON FOR VISIT 1wk pn MEDICAL (GENERAL) HISTORY Type Description Date Medical [...] Notes Treatment Notes Treatm ent Clinical Notes Nov, 38 weeks gestation of (ICD-10 - Z3A.38 ) Nov, Encounter for supervision of other normal in third trimester (ICD-10 - Z34.83) PLAN OF TREATMENT Next Appt Details Provider Name:Osiris Jose Luis Farrell, 2020-12-23 01:40:00 PM, [address] [facility], , [place], [address], Insurance Providers Payer Name Payer Address Payer Phone Insured Name Patient Relati onship to Insured Coverage Start Date Coverage End Date [facility] [address] [facility] [phone] ANGELICA CARR self
--- OUTSIDE RECORDS SUMMARY | 2021-01-15 06:20 | CCD ---
Author Author [facility] Organization [facility] Address Unknown Phone Unavailable Care Team Providers Care Collection Systems Administrator Name Role Phone Sheila Rivera Unavailable PROBLEMS Type Condition ICD9-CM Code [id number] Code Onset Dates Condition S tatus W/U Status Risk SNOMED Code Notes Problem Supervision of other normal Z34.80 Ac tive confirm [id number] Problem Obesity complicating in third trimester O99.213 Active confirmed ALLERGIES No Known Allergies ENCOUNTERS from 1989 to 2020-10-31 Encounter Location Date Provider Diagnosis [facility] [address] [place] [address] [place] [address] Oct, Sheila Rivera Intrauterine grow th restriction (IUGR) affecting care of mother, third trimester, single gestation O36.5930 and 37 weeks gestation of Z3A.37 IMMUNIZATIONS Vaccine Route Administration Date Status TDAP 0.5mL Boostrix IM Intramuscular September 09, 2020 Administere d RHo D Immune Globulin 300mcg/1.5mL RhoGAM IM Intramuscular August 022020 Administered SOCIAL HISTORY Sex Assigned At : Social History Observation Description Sex Assigned At Unknown Language: Question Answer Notes Languages spoken: Estonian Domestic Violence: Question Answer Notes Status: Single No history of abuse Alcohol Screening: Question Answer Notes Did you have a drink containing alcohol in the past year? No Points 0 Interpretation Negative REASON FOR REFERRAL No Information VITAL SIGNS Weight 210.2 lbs Oct, Weight-kg 95.35 kg Oct, Height 62 in Oct, BMI 38.446 kg/m2 Oct, Blood pressure systolic 112 mm Hg Oct, Blood pressure diastolic 66 mm Hg Oct, MEDICATIONS Medication SIG (Take, [...] Information RESULTS No Results REASON FOR VISIT 1 wk pn MEDICAL (GENERAL) HISTORY Type Description Date [...] trimester, single gestation (ICD-10 - O36.5930) Oct, 37 weeks gestation of (ICD-10 - Z3A.37 ) PLAN OF TREATMENT Next Appt Details 1 Week Reason:- Complicated OB follow up Provider Name:Jeff Harrison, 12:45:00 AM, [address] [facility], , [place], [address], Follow Up:1 Week- Complicated OB follow up Insurance Providers Payer Name Payer Address Payer Phone Insured Name Patient Relati onship to Insured Coverage Start Date Coverage End Date [employer] [place] [address] [facility] [address] [phone] ANGELICA CARR self
--- OUTSIDE RECORDS SUMMARY | 2021-01-15 06:20 | CCD ---
Author Author [facility] Organization [facility] Address Unknown Phone Unavailable Care Team Providers Care Nutrition Aide Name Role Phone IgnacioYin Unavailable PROBLEMS Type Condition ICD9-CM Code [id number] Code Onset Dates Condition S tatus W/U Status Risk SNOMED Code Notes Problem Supervision of other normal Z34.80 Ac tive confirm [id number] Problem Obesity complicating in third trimester O99.213 Active confirmed ALLERGIES No Known Allergies ENCOUNTERS from 1989 to 2020-11-16 Encounter Location Date Provider Diagnosis [facility] [address] [place] [address] [place] [address] Nov, Yin Pierre IMMUNIZATIONS Vaccine Route Administration Date Status TDAP 0.5mL Boostrix IM Intramuscular September 09, 2020 Administere d RHo D Immune Globulin 300mcg/1.5mL RhoGAM IM Intramuscular August 022020 Administered SOCIAL HISTORY Sex Assigned At : Social History Observation Description Sex Assigned At Unknown Language: Question Answer Notes Languages spoken: Tuvaluan Domestic Violence: Question Answer Notes Status: Single [...] Information RESULTS No Results REASON FOR VISIT mastitis/ MEDICAL (GENERAL) HISTORY Type Description Date Medical [...] Provider Name:Osiris Farrell, 2020-12-23 01:40:00 PM, [address] [facility], , [place], [address], Insurance Providers Payer Name Payer Address Payer Phone Insured Name Patient Relati onship to Insured Coverage Start Date Coverage End Date [facility] [address] [facility] [phone] ANGELICA CARR self
[2021-01-15 06:54] LABS: HEMATOCRIT 35.4 % (36.0-47.0); HEMOGLOBIN 11.3 g/dl (12.0-15.5); MEAN CORPUSCULAR HEMOGLOBIN 29.8 pg (27.0-33.0); MEAN CORPUSCULAR HGB CONC 31.9 g/dl (32.0-36.5); MEAN CORPUSCULAR VOLUME 93.4 fl (80.0-96.0); PLATELET COUNT, AUTOMATED 228 10^3/uL (150-450); RED BLOOD COUNT 3.79 10^6/uL (4.00-5.40); WHITE BLOOD COUNT 5.6 10^3/uL (4.0-10.0)
[2021-01-15] MEDS ORDERED: ROCURONIUM BROMIDE 50 MG/5 ML VIAL As Ordered ONE (07:05)
[2021-01-15] MEDS ORDERED: propofoL 200 MG/20 ML VIAL As Ordered ONE (07:05)
[2021-01-15] MEDS ORDERED: LIDOCAINE 2% 100MG/5ML SDV (FOR ANES.) As Ordered ONE (07:05)
[2021-01-15] MEDS ORDERED: MIDAZOLAM INJ 2MG/2ML VIAL (J2250 PER 1MG) As Ordered ONE (07:06)
[2021-01-15] MEDS ORDERED: fentaNYL 100 MCG/2 ML INJECTION (J3010) As Ordered ONE (07:06)
[2021-01-15] MEDS ORDERED: SUGAMMADEX SODIUM 500 MG/5 ML VIAL (BRIDION) As Ordered ONE (07:11)
[2021-01-15] MEDS ORDERED: ONDANSETRON 4MG/2ML VIAL As Ordered ONE (07:11)
[2021-01-15] MEDS ORDERED: dexameTHASONE 4 MG/ML 1ML VIAL (J1100 PER 1MG) As Ordered ONE (07:11)
[2021-01-15] MEDS ORDERED: KETOROLAC 60MG 2ML VIAL As Ordered ONE (07:11)
[2021-01-15] MEDS ORDERED: BUPIVACAINE HCL 0.25% 10ML VIAL As Ordered ONE (07:13)
[2021-01-15] MEDS ORDERED: LR 1,000 ML IV ONE (07:30)
[2021-01-15] MEDS ORDERED: ACETAMINOPHEN 1000MG 100ML IV BTL (OFIRMEV) (J0131 PER 10MG) As Ordered ONE (08:12)
[2021-01-15] MEDS ORDERED: IBUP-1022 PO (08:27)
--- NOTE | 2021-01-15 08:27 | ROOPDOC ---
[facility] Report Of Operation Report of Operation DATE OF PROCEDURE: 01/15/21 Pre-op dx: Undesired fertility Post op dx: Same PROCEDURE PERFORMED: Laparoscopic bilateral salpingectomy. SURGEON: Adin Mcmahan MD ANESTHESIA: GETA. ESTIMATED BLOOD LOSS: Approximately 10 mL. COMPLICATIONS: none. FINDINGS: Normal uterus fallopian tubes and ovaries. Normal upper abdomen. SPECIMENS REMOVED: Bilateral fallopian tubes PROCEDURE NOTE: The patient was taken to the operating room where general endotracheal anesthesia was induced. She was prepped and draped in a sterile fashion in the dorsal lithotomy position. A sponge stick was placed in the vagina to use as a manipulator. A periumbilical incision was made with a scalpel. A Veress needle was placed through this incision while tenting up on the skin of the abdomen. An intra-abdominal location the Veress needle was assessed with the use of a saline filled syringe. A pneumoperitoneum was created. The Veress needle was removed. A 5 mm trocar using Visiport was inserted through this incision. A 5 and 8 mm suprapubic port were placed under direct visualization. A grasping instrument was used to elevate each fallopian tube. A LigaSure device was used to coagulate and incise broad ligament attachments to the fallopian tube. Both tubes were excised near their origin. Both tubes were removed through the suprapubic port. The pneumoperitoneum was released. All instruments were removed. The skin was closed with 4-0 Monocryl subcuticular sutures. Sponge instrument and needle counts were correct. The patient went to the recovery room in stable condition. ADIN MCMAHAN MD Jan 15, 2021 08:27
[2021-01-15] MEDS ORDERED: OXYC1TAB23 PO (08:28)
[2021-01-15] MEDS ORDERED: LR 1,000 ML IV SCH (09:40)
[2021-01-15] MEDS ORDERED: fentaNYL 100 MCG/2 ML INJECTION (J3010) IV PRN (09:40)
[2021-01-15] MEDS ORDERED: HYDROMORPHONE HCL 0.5 MG/ 0.5 ML SYRINGE (J1170 PER 1) IV PRN (09:40)
[2021-01-15] MEDS ORDERED: ONDANSETRON 4MG/2ML VIAL IV PRN (09:40)
[2021-01-15] MEDS ORDERED: oxyCODONE 5MG TAB PO PRN (09:40)
[2021-01-15] MEDS ORDERED: PERCOCET 5MG/325MG TAB PO PRN (09:45)
[2021-01-15 10:00] VITALS: BP 117/57
== END 2021-01-15 10:00 | disposition home or self-care (01) ==
LOC: M SDC 06:15
PROVIDERS: ATTEND Specialist
DX: Z30.2 Encounter for sterilization (principal); K21.9 Gastro-esophageal reflux disease without esophagitis; G43.909 Migraine, unspecified, not intractable, without status migrainosus
CPT/HCPCS: 36415; 58661; 81025; 85027; 88302; J0131; J1100; J1885; J2250; J2405; J3010

== ENCOUNTER → 2021-06-24 | Outpatient (REF) | payer OTHER ==
[~2021-06-24] MED LIST changes: +IBUP-1022 PO; -LIDOCAINE 1% MDV 20ML VIAL SQ PRN; +OXYC1TAB23 PO
== END ==
LOC: M PLALAB 11:54
PROVIDERS: ATTEND Advanced Practice Midwife
DX: Z12.4 Encounter for screening for malignant neoplasm of cervix (principal); N91.2 Amenorrhea, unspecified

== ENCOUNTER → 2021-06-24 | Outpatient (CLI) | payer OTHER ==
[2021-06-24 14:25] LABS: HCG, SERUM QUALITATIVE NEGATIVE (NEGATIVE)
[2021-06-24 14:27] LABS: FREE T4 0.84 NG/DL (0.76-1.46)
[2021-06-25 19:07] LABS: TESTOSTERONE FREE (DIRECT) 0.5 pg/mL (0.0-4.2)
== END ==
LOC: M PLALAB 12:05
PROVIDERS: ATTEND Advanced Practice Midwife
DX: Z12.4 Encounter for screening for malignant neoplasm of cervix (principal); N91.2 Amenorrhea, unspecified